=== PATIENT | female | born 1940 | race Caucasian/White ===

== ENCOUNTER 2025-02-28 13:02 | Outpatient (CLI) | payer MEDICARE, SELFPAY ==
--- NOTE | ~2025-02-28 | XR_ITS ---
Fluoroscopically-guided video swallow - 02/28/2025 13:30 CDT History: : 84 years old Female with dysphagia Technique: Fluoroscopic guidance was provided during video swallowing study. Under direct fluoroscopic evaluatio n, the speech pathologist administered barium mixed liquids and solid food of varying consistency. T he mechanisms of bolus formation and swallowing were observed. Findings: Patient tolerated different liquids and foods of varying consistencies. No nasopharyngeal reflux was seen. No laryngeal penetration or subglottic aspiration was seen. Impression: No evidence of aspiration. Fluoroscopically-guided video swallowing study, as above. Please see speech pathology report for furt her details. Reviewed, dictated and finalized at location A. Impression: No evidence of aspiration. Fluoroscopically-guided video swallowing study, as above. Please see speech pat hology report for further details.
--- OUTSIDE RECORDS SUMMARY | 2025-02-28 13:31 | XMS_ITS | Referral Summary ---
Author Organization [facility] Address [address] [place] [id number] Care Team Providers Care Frame And Scrap Crusher Name Role Phone Adolph Lowry MD Primary Care Provider Josemanuel Odell MD Unavailable [phone] Rupesh Gavin DO Unavailable Encounters Date Type Department Care Team Description 02/27/2025 Telephone [facility] [address] [place] [address] [address] [place] [address] Consuelo Isaacs CMA 01/03/2025 Telephone [facility] [address] [place] [address] [address] [place] [address] Alessia Gamble CMA from Last 3 Months Allergies Active Allergy Reactions Criticality Noted Date Comments Codeine Nausea And Vomiting,Vomiting High 019 Indomethacin Unknown 09/26/2019 Medications allopurinoL (ZYLOPRIM) 300 mg tablet Take 1 tablet (300 mg total) by mouth daily 1 Active metFORMIN (GLUCOPHAGE) 500 mg tablet Take 1 tablet (500 mg total) by mouth 2 (two) times a day 1 Active simvastatin (ZOCOR) 20 mg tablet Take 1 tablet (20 mg total) by mouth daily 1 Active meclizine (ANTIVERT) 25 mg tablet meclizine 25 mg tablet TK ONE C PO TID PRN Active furosemide (LASIX) 20 mg tablet Take 1 tablet (20 mg total) by mouth daily 30 tablet 1 2 Active lisinopriL (PRINIVIL,ZESTR IL) 10 mg tablet Take 1 tablet (10 mg total) by mouth daily 30 tablet 1 2 Active metoprolol XL (TOPROL-XL) 25 mg extended release tablet Take 1 tablet (25 mg total) by mouth daily 30 tablet 1 2 Active Farxiga 10 mg tablet Take 1 tablet (10 mg total) by mouth daily 3 Active isosorbide-hydr ALAZINE (BIDIL) 20-37.5 mg per tablet TAKE 1/2 TABLET BY MOUTH THREE TIMES DAILY 3 Active omeprazole (PriLOSEC) 20 mg capsule Take by mouth daily as needed 3 Active Entresto 24-26 mg tablet 3 Active spironolactone- hydroCHLOROthia zide (ALDACTAZIDE) 25-25 mg per tablet Take 1 tablet by mouth daily 3 Active Verquvo 10 mg tablet Take 1 tablet (10 mg total) by mouth daily 3 Active anastrozole (ARIMIDEX) 1 mg tabletIndicatio ns:Hormone Receptor Positive Breast Cancer Take 1 tablet (1 mg total) by mouth daily 90 tablet 5 Active Active Problems Problem Noted Date Diagnosed Date Combined systolic and diastolic heart failure Type 2 diabetes mellitus 03/08/2022 Assessment & Plan (03/14/2022 11:37 AM CDT): On metformin at home, restart at time of discharge. Assessment & Plan (03/13/2022 3:59 PM CDT): On metformin at home. SSI Assessment & Plan (03/12/2022 8:41 AM CDT): On metformin at home. SSI Assessment & Plan (03/11/2022 12:39 PM CDT): On metformin at home. SSI Assessment & Plan (03/10/2022 9:56 AM CDT): On metformin at home. SSI Assessment & Plan (03/08/2022 5:03 PM CDT): On metformin at home. SSI Hypertension 03/08/2022 Assessment & Plan (03/14/2022 11:38 AM CDT): - Discontinued prior to discharge as we are starting BB and ACEi. - Follow up with PCP for ongoing titration of doses. Assessment & Plan (03/13/2022 4:00 PM CDT): - Continue home amlodipine. May discontinue prior to discharge as we'll be starting on BB and ACEi. Assessment & Plan (03/12/2022 8:41 AM CDT): - Continue home amlodipine. Assessment & Plan (03/11/2022 12:39 PM CDT): - Continue home amlodipine. Assessment & Plan (03/10/2022 9:56 AM CDT): - Continue home amlodipine. Assessment & Plan (03/09/2022 2:58 PM CDT): - Continue home amlodipine. Thyroid nodule 03/08/2022 Assessment & Plan (03/14/2022 11:37 AM CDT): Incidental finding. 2.7 cm hypoattenuating right thyroid nodule. - Recommend thyroid US or monitored on any subsequent follow-up imaging as an outpatient. Will defer to PCP. Assessment & Plan (03/13/2022 3:59 PM CDT): Incidental finding. 2.7 cm hypoattenuating right thyroid nodule. - Recommend thyroid US or monitored on any subsequent follow-up imaging as an outpatient. Will defer to PCP. Assessment & Plan (03/12/2022 8:41 AM CDT): Incidental finding. 2.7 cm hypoattenuating right thyroid nodule. - Recommend thyroid US or monitored on any subsequent follow-up imaging as an outpatient. Will defer to PCP. Assessment & Plan (03/11/2022 12:39 PM CDT): Incidental finding. 2.7 cm hypoattenuating right thyroid nodule. - Recommend thyroid US or monitored on any subsequent follow-up imaging as an outpatient. Will defer to PCP. Assessment & Plan (03/10/2022 9:56 AM CDT): Incidental finding. 2.7 cm hypoattenuating right thyroid nodule. - Recommend thyroid US or monitored on any subsequent follow-up imaging as an outpatient. Will defer to PCP. Assessment & Plan (03/08/2022 5:03 PM CDT): Incidental finding. 2.7 cm hypoattenuating right thyroid nodule. This can be further evaluated with thyroid US or monitored on any subsequent follow-up imaging per clinical preference. Malignant neoplasm of upper- inner quadrant of left breast in female, estrogen receptor positive 09/29/2021 Cancer Staging:Clinical stage from 12/09/2021:Stage IA(cT1a, cN0, cM0, G3, ER+, WV+, HER2-) - Signed by Rupesh Gavin DO on 12/13/2021 Assessment & Plan (03/14/2022 11:37 AM CDT): - Breast cancer s/p left sided mastectomy - Follows with Dr. Gavin - [place]/onc consult. Okay to continue home anastrazole. Assessment & Plan (03/13/2022 3:59 PM CDT): - Breast cancer s/p left sided mastectomy - Follows with Dr. Gavin - [place]/onc consult. Okay to continue home anastrazole. Assessment & Plan (03/12/2022 8:41 AM CDT): - Breast cancer s/p left sided mastectomy - Follows with Dr. Gavin - Med/onc consult. Okay to continue home anastrazole. Assessment & Plan (03/11/2022 12:39 PM CDT): - Breast cancer s/p left sided mastectomy - Follows with Dr. Gavin - Med/onc consult. Okay to continue home anastrazole. Assessment & Plan (03/10/2022 9:55 AM CDT): - Breast cancer s/p left sided mastectomy - Follows with Dr. Gavin - Med/onc consult. Okay to continue home anastrazole. Assessment & Plan (03/08/2022 4:46 PM CDT): Breast cancer s/p left sided mastectomy Follows with Dr. Gavin On anastrazole Med/onc consult Resolved Problems Problem Noted Date Diagnosed Date Resolved Date Acute combined systolic and diastolic heart failure 03/12/2022 03/14/2022 Assessment & Plan (03/14/2022 11:36 AM CDT): Pt presented with shortness of breath, new oxygen requirement with chest CT showing pulmonary edema. Now with newly diagnosed heart failure - TTE EF 25-30% with grade II-III diastolic dysfunction and severe globar hypokinesis. - Diuresing with lasix 40 IV daily -> discharge on lasix 20 mg po. - Start lisinopril 10 mg and metoprolol XL 25 mg upon discharge. Recommended dose titration as tolerated in discharge paperwork and encouraged pt to follow up with her PCP in the next 1 to 2 weeks and bring dispo paperwork with her. - Will need to establish care with cardiology outpatient. Pt may like to establish care with flag football coach closer to home. Provided [facility] cardiology clinic phone number in case she would like to establish care here. - Pt provided with information on heart failure. Assessment & Plan (03/13/2022 3:59 PM CDT): Pt presented with shortness of breath, new oxygen requirement with chest CT showing pulmonary edema. Now with newly diagnosed heart failure - TTE EF 25-30% with grade II-III diastolic dysfunction and severe globar hypokinesis. - Continue daily lasix 40 IV. Plan to switch to po tomorrow. - CTM I/Os. Daily weights. - Start ACEi and beta allen prior to discharge. - Will need to establish care with cardiology outpatient. Assessment & Plan (03/12/2022 8:40 AM CDT): Pt presented with shortness of breath, new oxygen requirement with chest CT showing pulmonary edema. Now with newly diagnosed heart failure - TTE EF 25-30% with grade II-III diastolic dysfunction and severe globar hypokinesis. - Continue daily lasix 40 IV. - CTM I/Os. Daily weights. - Start ACEi and beta allen prior to discharge. - Will need to establish care with cardiology outpatient. Acute hypoxemic respiratory failure 03/08/2022 03/14/2022 Assessment & Plan (03/14/2022 11:33 AM CDT): Ongoing for the last week progressively with accompanying cough. Pt tachypneic in the ED with SpO2 down to 80% per report requiring BiPAP. CXR and CT suggestive of pulmonary edema, and pleural effusion. COVID/RVP negative. NT-proBNP slightly elevated. Does have a prior smoking history. Mild leukocytosis to 11.6. Most likely 2/2 newly diagnosed CHF, as below. - Manage CHF, as elsewhere - I do not have a high suspicion for COPD exacerbation but pt does have increased coughing per report and a history of smoking. Started on azithro, steroids and duonebs prn on admission and has now completed treatment for presumed COPD exacerbation. Recommend PFT as outpatient- will defer to PCP. - RESOLVED. On 2L -> now weaned to room air. Walked with RN and SpO2 remained > 92%. Assessment & Plan (03/13/2022 3:58 PM CDT): Ongoing for the last week progressively with accompanying cough. Pt tachypneic in the ED with SpO2 down to 80% per report requiring BiPAP. CXR and CT suggestive of pulmonary edema, and pleural effusion. COVID/RVP negative. NT-proBNP slightly elevated. Does have a prior smoking history. Mild leukocytosis to 11.6. Most likely 2/2 newly diagnosed CHF, as below. - Manage CHF, as elsewhere - I do not have a high suspicion for COPD exacerbation but pt does have increased coughing per report and a history of smoking. Started on azithro, steroids and duonebs prn on admission. Will complete treatment for presumed COPD exacerbation. Recommend PFT as outpatient- will defer to PCP. - On 2L -> now weaned to room air. Assessment & Plan (03/12/2022 2:32 PM CDT): Ongoing for the last week progressively with accompanying cough. Pt tachypneic in the ED with SpO2 down to 80% per report requiring BiPAP. CXR and CT suggestive of pulmonary edema, and pleural effusion. COVID/RVP negative. NT-proBNP slightly elevated. Does have a prior smoking history. Mild leukocytosis to 11.6. Most likely 2/2 newly diagnosed CHF, as below. - Manage CHF, as elsewhere - I do not have a high suspicion for COPD exacerbation but pt does have increased coughing per report and a history of smoking. Started on azithro, steroids and duonebs prn on admission. Will complete treatment for presumed COPD exacerbation. Recommend PFT as outpatient- will defer to PCP. - On 2L -> now weaned to room air. Consider walking O2 prior to discharge. Assessment & Plan (03/11/2022 2:14 PM CDT): Ongoing for the last week progressively with accompanying cough. Pt tachypneic in the ED with SpO2 down to 80% per report requiring BiPAP. CXR and CT suggestive of pulmonary edema, and pleural effusion. COVID/RVP negative. NT-proBNP slightly elevated. Does have a prior smoking history. Mild leukocytosis to 11.6. Suspect component of volume overload so received a dose of lasix IV x 2. - Lasix IV held yesterday given uptrending in Cr. Will give another dose today. - Obtain TTE. - I do not have a high suspicion for COPD exacerbation but pt does have increased coughing per report and a history of smoking. Started on azithro, steroids and duonebs prn on admission. Will complete treatment for presumed COPD exacerbation. Recommend PFT as outpatient- will defer to PCP. - On 2L -> 1L, wean O2 as tolerated Assessment & Plan (03/10/2022 9:53 AM CDT): Ongoing for the last week progressively with accompanying cough. Pt tachypneic in the ED with SpO2 down to 80% per report requiring BiPAP. CXR and CT suggestive of pulmonary edema, and pleural effusion. COVID/RVP negative. NT-proBNP slightly elevated. Does have a prior smoking history. Mild leukocytosis to 11.6. Suspect component of volume overload so received a dose of lasix IV x 2. - Hold lasix IV given uptrending in Cr. - Obtain TTE. - I do not have a high suspicion for COPD exacerbation but pt does have increased coughing per report and a history of smoking. Started on azithro, steroids and duonebs prn on admission. Will complete treatment for presumed COPD exacerbation. Recommend PFT as outpatient- will defer to PCP. - On 2L -> 1L, wean O2 as tolerated Assessment & Plan (03/09/2022 2:57 PM CDT): Ongoing for the last week progressively with accompanying cough. Pt tachypneic in the ED with SpO2 down to 80% per report requiring BiPAP. CXR and CT suggestive of pulmonary edema, and pleural effusion. COVID/RVP negative. NT-proBNP slightly elevated. Does have a prior smoking history. Mild leukocytosis to 11.6. Suspect component of volume overload so received a dose of lasix IV on admission. - Obtain TTE and trial IV lasix - No obvious wheezing but does have a prior smoking history so will continue to treat for presumed copd exac with steroids, azithro, duonebs - On 2L, wean O2 as tolerated Elevated serum creatinine 03/08/2022 Assessment & Plan (03/14/2022 11:37 AM CDT): Cr on admission 1.23 from baseline 1.05- not meeting criteria for FERNANDO. Cr initially improved to 1.12 -> up to 1.30 likely in setting of lasix. Improved and stable 1.10's. FEUrea 26.3% consistent with pre-renal disease. Potential CRS component. - Improved with diuresing. Follow up outpt. Assessment & Plan (03/13/2022 3:59 PM CDT): Cr on admission 1.23 from baseline 1.05- not meeting criteria for FERNANDO. Cr initially improved to 1.12 -> up to 1.30 likely in setting of lasix. Improved and stable 1.10's. FEUrea 26.3% consistent with pre-renal disease. - Continue diuresing, as elsewhere - Trend Cr, strict I/O Assessment & Plan (03/12/2022 8:41 AM CDT): Cr on admission 1.23 from baseline 1.05- not meeting criteria for FERNANDO. Cr initially improved to 1.12 -> up to 1.30 likely in setting of lasix. Now improving 1.15 -> 1.2. FEUrea 26.3% consistent with pre-renal disease. Potential CRS. - Continue diuresing, as elsewhere - Trend Cr, strict I/O Assessment & Plan (03/11/2022 12:39 PM CDT): Cr on admission 1.23 from baseline 1.05- not meeting criteria for FERNANDO. Cr initially improved to 1.12 -> up to 1.30 likely in setting of lasix. Now improved 1.15. FEUrea 26.3% consistent with pre-renal disease. - Will give another dose of lasix - Trend Cr, strict I/O - If not improvement, obtain renal US Assessment & Plan (03/10/2022 9:55 AM CDT): Cr on admission 1.23 from baseline 1.05- not meeting criteria for FERNANDO. Cr initially improved to 1.12 -> now up to 1.30 likely in setting of lasix. - Obtain urine lytes - Hold lasix - Trend Cr, strict I/O - If not improvement, obtain renal US Assessment & Plan (03/09/2022 2:58 PM CDT): Cr on admission 1.23 from baseline 1.05. Improving 1.12. - Will give a repeat dose of IV lasix. - Trend Cr, strict I/O Social History Tobacco Use Types Packs/Day Years Used Date Smoking Tobacco: Never Smokeless Tobacco: Never AUDIT-C Answer Date Recorded Q1: How often do you have a drink containing alc ohol? 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 Gender Identity Not on file Sexual Orientation Not on file Occupation Industry Job Start Date Job End Date Retired Not on file Not on file Not on file Last Filed Vital Signs Vital Sign Reading Time Taken Comments Blood Pressure 98/65 12/30/2023 3:02 PM CARD LACER Pulse 56 12/30/2023 3:02 PM CARD LACER Temperature 36.5 C (97.7 F) 12/30/2023 3:02 PM CARD LACER Respiratory Rate 20 12/30/2023 3:02 PM CARD LACER Oxygen Saturation 96% 12/30/2023 3:02 PM CARD LACER Inhaled Oxygen Concentration - - Weight 98.3 kg (216 lb 11.4 oz) 12/30/2023 3:02 PM CARD LACER Height 170.2 cm (5' 7 ) 12/30/2023 3:02 PM CARD LACER Body Mass Index 33.94 12/30/2023 3:02 PM CARD LACER Plan of Treatment Not on file Procedures Procedure Name Priority Date/Time Associated Diagnosis Comments EGFR Routine 03/14/2022 3:37 AM CDT HEMOGLOBIN A1C STAT 03/08/2022 4:47 AM CDT LIPID PANEL STAT 03/08/2022 4:47 AM CDT from Last 3 Months or Most Recently Relevant to Health Maintenance Results * (ABNORMAL) eGFR (03/14/2022 3:37 AM CDT) eGFR 52(L) 90 - 130 mL/min/1. 73 m2 [facility] Comment: Interpretive Data Reference Interval Normal >/= 90 mL/min/1.73m2 Mildly decreased* 60 - 89 mL/min/1.73m2 Mildly to moderately decreased 45 - 59 mL/min/1.73m2 Moderately to severely decreased 30 - 44 mL/min/1.73m2 Severely decreased 15 - 29 mL/min/1.73m2 Kidney Failure < 15 mL/min/1.73m2 *Relative to young adult level Estimated glomerular filtration rate is determined by the 2020 CKD-EPI equation recommended by the National Kidney Foundation (A Unifying Approach to GFR Estimation: Recommendations of the NKF-ASK Task Force on Reassessing the Inclusion of Race in Diagnosing Kidney Disease, JASN 2020). The CKD-EPI equation should not be used for patients with unstable renal function and has not been validated in children and those over 70. Current interpretive data was last reviewed 2021. Blood 03/14/2022 3:37 AM CDT 03/14/2022 3:48 AM CDT us Sami Clark MD LAB BLOOD ORDERABLES Final Result Performing Organization Address [facility] Co de Phone Number [facility] Department [place] [place] [address] * Hemoglobin A1c (03/08/2022 4:47 AM CDT) Hgb A1C 5.5 4.0 - 5.6 % [facility] Estimated Average Glucose 111 mg/dL [facility] Comment: The ADA recommends reporting an estimated Average Glucose (eAG) with all Hemoglobin A1c results using the equation derived from a study of 507 normal and diabetic adults. Minority populations were underrepresented and children were not included. (Diabetes Care 2020; 43(S1): S66-S76). The eAG is not equivalent to a fasting glucose. Blood 03/08/2022 4:47 AM CDT 03/08/2022 5:17 AM CDT us Rupesh Gavin DO LAB BLOOD ORDERABLES Final R esult Performing Organization Address City/[facility]/ZIP Co de Phone Number [facility] [place] [employer] [address] * Lipid panel (03/08/2022 4:47 AM CDT) Cholesterol 128 30 - 199 mg/dL [facility] Comment: Interpretive Data Ages < or = 19 years Acceptable: <170 mg/dL Borderline high: 170-199 mg/dL High: >or= 200 mg/dL Ages > or = 20 years Desirable: <200 mg/dL Borderline high: 200-239 mg/dL High: >or= 240 mg/dL Literature References: 1. Expert Panel on Integrated Guidelines for Cardiovascular Health and Risk Reduction in Children and Adolescents. Pediatrics 2011;128:S213 2. NCEP Expert Panel. Circulation 2004;110:227 Current Interpretive Data was last revised on 2018. Triglycerides 73 <=149 mg/dL [facility] Comment: Interpretive Data Ages < or = 9 years Acceptable: <75 mg/dL Borderline high: 75-99 mg/dL High: >or= 100 mg/dL Ages 10 to 20 years Acceptable: <90 mg/dL Borderline high: 90-129 mg/dL High: >or= 130 mg/dL Ages > or = 20 years Desirable: <150 mg/dL Borderline high: 150-199 mg/dL High: 200-499 mg/dL Very high: >or= 499 mg/dL Literature References: 1. Expert Panel on Integrated Guidelines for Cardiovascular Health and Risk Reduction in Children and Adolescents. Pediatrics 2011;128:S213 2. NCEP Expert Panel. Circulation 2004;110:227 Current Interpretive Data was last revised on 2018. HDL 46 >=40 mg/dL [facility] Comment: Interpretive Data Ages < or = 19 years Acceptable: >45 mg/dL Borderline low: 40-45 mg/dL Low: <40 mg/dL Ages > or = 20 years Desirable: >or= 60 mg/dL Low: <40 mg/dL Literature References: 1. Expert Panel on Integrated Guidelines for Cardiovascular Health and Risk Reduction in Children and Adolescents. Pediatrics 2011;128:S213 2. NCEP Expert Panel. Circulation 2004;110:227 Current Interpretive Data was last revised on 2018. LDL, calculated 67 <=129 mg/dL [facility] Comment: Interpretive Data Ages < or = 19 years Acceptable: <110 mg/dL Borderline high: 110-129 mg/dL High: >or= 130 mg/dL Ages > or = 20 years Optimal: <100 mg/dL Near optimal: 100-129 mg/dL Borderline high: 130-159 mg/dL High: >160 mg/dL Literature References: 1. Expert Panel on Integrated Guidelines for Cardiovascular Health and Risk Reduction in Children and Adolescents. Pediatrics 2011;128:S213 2. NCEP Expert Panel. Circulation 2004;110:227 Current Interpretive Data was last revised on 2018. Non-HDL Cholesterol 82 mg/dL [facility] Comment: Interpretive Data Ages < or = 19 years Acceptable: <120 mg/dL Borderline high: 120-144 mg/dL High: >145 mg/dL Ages > or = 20 years When triglycerides are >200 mg/dL, Non-HDL cholesterol is a secondary target of therapy with treatment goals that are 30 mg/dL greater than the LDL cholesterol target. Literature References: 1. Expert Panel on Integrated Guidelines for Cardiovascular Health and Risk Reduction in Children and Adolescents. Pediatrics 2011;128:S213 2. NCEP Expert Panel. Circulation 2004;110:227 Current Interpretive Data was last revised on 2018. Chol/HDL ratio 3 [facility] Blood 03/08/2022 4:47 AM CDT 03/08/2022 5:06 AM CDT Narrative [facility] - 03/09/2022 12:17 AM CDT Reflex us Rupesh Gavin DO LAB BLOOD ORDERABLES Final R esult [facility] [place] [address] from Last 3 Months or Most Recently Relevant to Health Maintenance Insurance [facility] MEDICARE ADVANTAGE R HMO REF R HMO REF [place] [id number] Advance Directives For more information, please contact: [phone] * Full Code (Latest Code Status on File) Date Activated Date Inactivated Comments 03/08/2022 11:21 AM 03/14/2022 6:08 PM Care Teams Frame And Scrap Crusher Relationship Specialty Start Date End Date Adolph Lowry MD PCP - General Internal Medicine 09/15/21 Josemanuel Odell MD [address] [address] Surgeon Internal Medicine 09/15/21 Rupesh Gavin DO [address] [place] [id number] Medical Oncologist/Metal Shaping Machine Operator Hematology and Oncology 09/15/21
--- OUTSIDE RECORDS SUMMARY | 2025-02-28 13:31 | XMS_ITS | Encounter Summary ---
Author Organization [facility] Address [address] [place] [address] Phone Care Team Providers Care Receiver Setter Name Role Phone Adolph Lowry MD Primary Care Provider [phone] Josemanuel Odell MD Unavailable [phone] Rupesh Gavin DO Unavailable [phone] Encounter Details Date Type Department Care Team (Late st Contact Info) Description 02/27/2025 Telephone [facility] Oncology [address] [place] [address] [address] [place] [address] Consuelo Isaacs CMA Social History Tobacco Use Types Packs/Day Years [...] on file Legal Sex 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 Rescheduled patient to 03/29/2025 documented in this encounter Plan of Treatment Not on file documented as of this encounter Visit Diagnoses Not on filedocumented in this encounter Care Teams Receiver Setter Relationship Specialty Start Date End Date Adolph Lowry MD PCP - General Internal Medicine 09/15/21 Josemanuel Odell MD [address] [address] Surgeon Internal Medicine 09/15/21 Rupesh Gavin DO [address] [place] [id number] Medical Oncologist/Tire Repair Mechanic Hematology and Oncology 09/15/21 documented as of this encounter
--- OUTSIDE RECORDS SUMMARY | 2025-02-28 13:31 | XMS_ITS ---
Author Organization [facility] Address [address] [place] [address] Care Team Providers Care Forklift Technician Name Role Phone Adolph Lowry MD Primary Care Provider [phone] Josemanuel Odell MD Unavailable [phone] Rupesh Gavin DO Unavailable Active Problems Problem Noted Date Diagnosed Date [...] from 12/09/2021:Stage IA(cT1a, cN0, cM0, G3, ER+, FL+, HER2-) - Signed by Rupesh Gavin DO [...] with Dr. Gavin On anastrazole Med/onc consult Current Treatment and Therapy Plans No current plan information found. Past Treatment and Therapy Plans No past plan information found. Lifetime Dose Tracking * Chemical Lifetime Dose Automatic Entry Manual Entr y DLP 740 mGycm 740 mGycm 0 mGycm Treatment Summaries Malignant neoplasm of upper-inner quadrant of left breast in female, estrogen receptor positive (HCC)* Images from the original note were not included. [address], [address] [place] [address] This Survivorship Care Plan is a cancer treatment summary and follow-up plan and is provided to youto keep with your health care records and to share with your primary care provider or any of your doctors and nurses. This summary is a brief record of major aspects of your cancer treatment not a detailed or comprehensive record of your care. You should review this with your cancer provider. Treatment Summary and Survivorship Care Plan for Breast Cancer General Information Patient name Massiel Kingsley (home) Date of 1940 Health Care Providers (Including Names, Institutions) Provider Name: Contact Information: Primary Care Physician Adolph Lowry MD [phone] Surgeon Josemanuel Odell MD [phone] Medical Oncologist Rupesh Gavin, Treatment Summary Cancer Diagnosis Information Diagnosis Malignant neoplasm of upper-inner quadrant of left breast in female, estrogen receptor positive (CMS/HCC) (HCC) Diagnosis date 09/03/2021 Staging information Cancer Staging Malignant neoplasm of upper-inner quadrant of left breast in female, estrogen receptor positive (CMS/HCC) (HCC) Staging form: Breast, AJCC 8th Edition - Clinical stage from 12/09/2021: Stage IA (cT1a, cN0, cM0, G3, ER+, FL+, HER2-) - Signed by Rupesh Gavin DO on 12/13/2021 Estrogen: Positive Progesterone: Positive HER2: Negative Treatment Completed Surgery Surgery date 09/03/2021 Surgical procedure / location / findings Left Breast Biopsy Surgery date 11/19/2021 Surgical procedure Left Mastectomy Radiation No Systemic Therapy (chemotherapy, hormonal therapy, other) [No treatment plan] Lifetime Dose Tracking Lifetime Dose Tracking No doses have been documented on this patient for the following tracked chemicals: doxorubicin, epirubicin, idarubicin, daunorubicin, mitoxantrone, bleomycin, mitomycin, cyclophosphamide, carmustine,cisplatin, ifosfamide, carboplatin, fluorouracil, etoposide, doxorubicin HCl pegylated liposomal, et oposide phosphate, valrubicin, doxorubicin isotoxic equivalent Research Studies Persistent symptoms or side effects that have continued after finishing treatment: menopausal symptoms, fatigue Family History Cancer Cancer-related family history includes Bone cancer in her sister; Pancreatic cancer in her mother. Genetic Testing No Tell your provider if there is a history of cancer in your family, if another member of your familywas diagnosed with cancer since your last visit. The following risk factors may indicate that breast cancer could run in the family: Sikhism heritage History of ovarian cancer in the patient or any 1st or 2nd degree relative Any 1st degree relative with breast cancer before the age of 50 Two or more 1st or 2nd degree relative diagnosed with breast cancer at any age Patient or relative diagnosed with bilateral breast cancer History of breast cancer in a male relative Treatment Ongoing Additional Treatment Start Date Planned Duration Possible Side Effects Aromatase Inhibitors (anastrozole, exemestane and letrozole) 10/21/2021 5 years Hot flashes, joint/muscle aches, vaginal dryness and bone loss (common); hair thinning (rare) Other rare side effects may occur. Calcium + Vitamin D 19-50 years age and males age 51-70 years: recommend 1,000 mg/day calcium & 600 IU/day vitamin D Females age 51-70 1200 mg/day calcium and 600 IU/day vitamin D Over 70 years age take 1200 mg/day calcium and 800 IU/day of vitamin D 2000 international units daily Lifelong An irregular heartbeat; nausea, constipation; weakness, drowsiness, headache; dry mouth,or a metallic taste in your mouth; or muscle or bone pain. Follow-up Care Plan Your follow-up care plan is design to inform you and primary care providers regarding the recommended and required follow-up, cancer screening and routine health maintenance that is needed to maintain optimal health. Coordinating Provider When/How often Rupesh Gavin DO Every 3-6 months for year 1 to 3 Rupesh Gavin DO Every 6-12 months for year 4 to 5 Josemanuel Odell MD Yearly Adolph Lowry After 5 years, annual follow up Cancer Surveillance or other Recommended Tests Coordinating Provider Test How Often Rupesh Gavin DO - Year 1-5, Adolph Lowry MD - After year 5 Mammogram for remaining breast(s) Yearly CONVENTION PLANNER: Pap/pelvic exam (woman only) As indicated by provider Medical Oncologist: Rupesh Gavin DO, PCP: Adolph Lowry Bone Density Every 2 years if on anaromatase inhibitor or as indicated by your provider CT/PET and tumor markers. Not recommended in the absence of signs or symptoms of cancer recurrence Possible late- and long-term effects that someone with this type of cancer and treatment may experience: Lymphedema The risk for developing lymphedema varies across treatments, time and the patient. This may occur right after surgery or months to years after treatment. It affects 12 to 25% of patients. The risk increases with the removal of lymph nodes, radiation therapy and injury. Avoid blood pressure or blooddraw in affected arm if lymph nodes were removed. If you experience skin tightness, swelling, warmth or redness in your affected side, tell your provider right away. Physical therapy can improve lymph drainage. Talk with your provider about approved exercise. Avoid extreme temperature, injury or infection on the affected side. Talk to your provider about a compression stocking, especially when flying. Fatigue Many patients experience some level of fatigue. Some patients experience severe and ongoing fatigue. An active lifestyle with healthy sleep patterns can improve your energy levels. Talk to your provider about ongoing (more than 3 months) fatigue. Osteoporosis Patients on hormone therapies and who experience early menopause are at a higher risk of developingfractures, osteopenia (lower than normal bone density) and osteoporosis (loss of bone density). Weight bearing exercise, adequate intake calcium and vitamin D are helpful. Bone density scans are usedto evaluate bone health. Menopause or Sexual changes or symptoms of estrogen deprivation (hot flashes, sweats, vaginal discharge or dryness, painful intercourse). The desire to engage in sexual activity may lessen due to low energy, decreased sexual function and/or changes in appearance. Symptoms of menopause may cause vaginal changes and/or dryness. Your riskdepends on your age and the kind of treatment you received. Cancer diagnosis and treatment may cause existing sexual problems to be worse. Evaluation of sexual function and professional counseling may be helpful. The use of [id number] lubricants may lessen painful intercourse. Talk with your provider about sexual changes and symptoms of menopause. Promising non-hormone treatments that may include antidepressants (drugs that treat depression), dietary changes, acupuncture and exercise may h elp lessen symptoms. Psychosocial Distress (Emotional stress, worry or depression). Many patients experience distress, anxiety or depression at some point. This can include worry, difficulty sleeping or sadness and often lessens over time. Discuss this with your provider; a referralto a therapist may be helpful. Physical activity has been shown to relieve stress. Some patients may benefit from the use of medication. It is important to remember that these symptoms can be due to other causes like diabetes or with normal aging. If these or any other new symptoms occur bring these to attention of your health care provider. These symptoms should be brought to the attention of your provider: Anything that represents a brand new symptom; Anything that represents a persistent symptom; Anything you are worried about that might be related to the cancer coming back. Please continue to see your primary care provider for all general health care recommended for a patient your age such as routine immunizations, and routine non-breast cancer screening like colonoscopy or bone density exams. Consult with your health care provider about prevention and screening for bone loss using bone density tests. Cancer survivors may experience issues with the areas listed below. If you have any concerns in these or other areas, please speak with your doctors or nurses to find out how you can get help with them. Anxiety and depression Emotional and mental health Fatigue Fertility Financial advice or assistance Insurance Memory or concentration loss Parenting Physical functioning School/work Sexual functioning Stopping smoking Weight changes Other A number of lifestyle/behaviors can affect your ongoing health, including the risk for the cancer coming back or developing another cancer. Discuss these recommendations with your doctor or nurse: Eat a healthy diet: focus on lean meats and proteins, more fruits, vegetables and whole grains and low in sugars and fats. Limit red meat and avoid processed meat. Maintain a healthy weight; avoid being overweight. Aim for a normal body mass index (BMI) of 18.5-24.9. Help learning to eat healthier, call the pick up man at: [facility] Have an active lifestyle, strive for 30 minutes of moderate exercise 5 times a week and strength orresistance training at least twice a week. Use broad-spectrum (UVA+UVB) sunscreen with SPF 30 or greater, is water resistant, limit time spentin the sun (10 am-4 pm), wear hat, wear UV protective clothing, wear sunglasses. Never use a tanning bed. Skin that was irradiated may be more sensitive over your lifetime. Do not smoke or chew tobacco; participate in a smoking cessation program. Limit alcohol intake, 1 drink per day for a woman and 2 drinks per day for a man. Resources you may be interested in: [facility] http://www.[facility] [place]/ [facility] Information [facility] 1st floor of [facility] [phone]. Computer access, educational material, counseling services (FREE) Cancer Resources: www.cancer.net [place] Disabilities Act: The U.S. Department of Justice provides information about the Americans with Disabilities Act (ADA). Toll free number http://www.ada.gov/ Occupational Therapy at [facility]. Improve memory and thinking following chemotherapy. Improve your performance at home, work and in the community. or Toll free www.ot.[facility]/patients Managing your weight after a cancer diagnosis: http://www.cancer.net/sites/cancer.net/files/weight_after_cancer_diagnosis.pdf National Coalition for Cancer Survivorship: http://www.canceradvocacy.org/ [place] Cancer Society Cancer Survivors Network: http://csn.cancer.org/ [employer]: https://survivorship.cancer.gov/ an online tool for cancer survivors andcaregivers created by the [place] Cancer Society and the National Cancer [place]. It provides: Information on dealing with side effects from cancer and treatment Caregivers with support and resources Practical advice about talking to friends and family about cancer Questions to ask their health care team Help understanding their rights in the workplace Resolved Problems Problem Noted Date Diagnosed Date [...] Pt may like to establish care with evp and chief operating officer closer to home. Provided [facility] cardiology clinic phone number in case [...]
--- OUTSIDE RECORDS SUMMARY | 2025-02-28 13:31 | XMS_ITS | Clinical Summary ---
Author Organization [facility] Address [address] [place] [id number] Phone Care Team Providers Care Vascular Neurologist Name Role Phone Alen Farfan MD Primary Care Provider [phone] Allergies Active Allergy Reactions Criticality Noted Date Comments Codeine 09/26/2019 Indomethacin 09/26/2019 Medications simvastatin (ZOCOR) 20 MG tablet 1 tablet daily 0 7 Active allopurinol (ZYLOPRIM) 300 MG tablet 1 tablet daily 0 7 Active aspirin (ST FLIP) 81 MG EC tablet 1 tablet daily 0 7 Active ferrous sulfate 325 (65 Fe) MG tablet Take 325 mg by mouth 1 (one) time each day with breakfast Active anastrozole (ARIMIDEX) 1 MG chemo tablet Take 1 mg by mouth daily 2 Active metoprolol succinate XL (TOPROL-XL) 25 MG 24 hr tablet metoprolol succinate ER 25 mg tablet,extended release 24 hr 2 Active Cholecalciferol (Vitamin D3) 1.25 MG (40582 UT) capsule Take 50,000 Units by mouth per week Active spironolactone-h ydroCHLOROthiazi de (ALDACTAZIDE) 25-25 MG per tablet Take 1 tablet by mouth 1 (one) time each day Active Vericiguat 10 MG tablet Take 1 tablet by mouth 1 (one) time each day Active sacubitril-valsa rtan (ENTRESTO) 24-26 MG per tablet Take 1 tablet by mouth in the morning and 1 tablet in the evening. Active isosorbide-hydrA LAZINE (BIDIL) 20-37.5 MG per tablet Take 0.5 tablets by mouth in the morning and 0.5 tablets in the evening and 0.5 tablets before bedtime. Active omeprazole (PriLOSEC) [address] capsule Take 40 mg by mouth 1 (one) time each day Active Dapagliflozin Propanediol (Farxiga) 10 MG tablet Take 1 tablet by mouth 1 (one) time each day Active Active Problems Problem Noted Date Diagnosed Date Chronic combined systolic an d diastolic congestive heart failure 07/03/2024 Pulmonary hypertension 07/03/2024 Chronic kidney disease stage 3B 05/04/2022 Essential (primary) hypertension 11/24/2016 Resolved Problems Problem Noted Date Diagnosed Date Resolved Date Chronic kidney disease stage 2 01/21/2021 05/04/2022 Serum creatinine raised 09/26/2019 03/01/2021 Proteinuria 11/24/2016 09/26/2019 Obesity 11/24/2016 04/29/2022 Impaired fasting glucose 11/24/201604/2024 Immunizations Immunization Administration Dates Next Due Influenza TIV (IM) 08/31/2016 Family History Medical History Relation Comments Heart disease Father Hypertension Father Cancer Mother Diabetes Mother Hypertension Mother Cancer Sister Relation Status Comments Father Mother Sister Social History Tobacco Use Types Packs/Day Years Used Date Smoking Tobacco: Unknown Smokeless Tobacco: Never Alcohol Use Standard Drinks/Week Comments Never 0 (1 standard drink = 0.6 oz pur e alcohol) AUDIT-C Answer Date Recorded Frequency of Alcohol Consumption Never 09/26/2019 Average Number of Drinks Not on file 019 Frequency of Binge Drinking Not on file 04/2019 Comments Unknown Sex and Gender Information Value Date Recorded Sex Assigned at Not on file Legal Sex Female 8:48 AM [facility] Gender Identity Not on file Sexual Orientation Not on file Last Filed Vital Signs Vital Sign Reading Time Taken Comments Blood Pressure 133/71 07/03/2024 11:12 AM CDT Pulse 58 07/03/2024 11:12 AM CDT Temperature - - Respiratory Rate - - Oxygen Saturation - - Inhaled Oxygen Concentration - - Weight 96.2 kg (212 lb) 07/03/2024 11:12 AM CDT Height 170.2 cm (5' 7 ) 07/03/2024 11:12 AM CDT Body Mass Index 33.2 07/03/2024 11:12 AM CDT Plan of Treatment Upcoming Encounters Date Type Department Care Team (Late st Contact Info) Description 07/02/2025 11:00 AM CDT Office Visit [facility] [address], [address] [place] [address] Matt Sandoval MD [address] [address] Health Maintenance Due Date Last Done Comments Diabetic Foot Exam 1950 Ophthalmology Exam 1950 Pneumococcal PPSV23/PCV13 65 + Years / High and Highest Risk (2 of 4 - PPSV23) 07/29/2017 06/03/2017 Influenza Vaccine (Season Ended) 2025 08/31/20 16 Insurance [employer] MEDICARE Care Teams Vascular Neurologist Relationship Specialty Start Date End Date Alen Farfan MD PCP - General 10/02/19
--- OUTSIDE RECORDS SUMMARY | 2025-02-28 13:31 | XMS_ITS | CONTINUITY OF CARE DOCUMENT ---
Author Name filipe dent Address Unknown Organization [facility] Address [address] [place] [address] Phone [phone] Care Team Providers Care Field Inspector Name Role Phone Daniele SKINNER, Charlie Unavailable Adolph Lowry MD Unavailable Adolph Lowry MD Unavailable [phone] PROBLEMS Condition Status Date Provider Notes IRON DEFICIENCY active Charlie Sanabria MD CAD;;neg carotid active Charlie Sanabria MD Pulmonary hypertension active Charlie Sanabria MD Valvular heart disease active Charlie Sanabria MD Screening active Charlie Sanabria MD HTN-02/26 ECHO EF 55 active - Charlie Sanabria MD Hyperlipidemia;neg crp and lpa active Alma Rosa Sanabria MD HTN essential;neg angio active Charlie messina MD CAD-02/26 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 - Charlie Sanabria MD TANJA (YARBROUGH)-PARKINSON-WHIT E (WPW) SYNDROME active Charlie Sanabria MD seen in 2008 ek g ATRIAL FIBRILLATION, PAROXYSMAL;DURING STRESS TEST;neg tsh active Charlie Sanabria MD Diastolic CHF active Charlie avalos et 20, Thyroid nodule;nl tsh active Charlie Sanabria MD Renal disease, chronic, mild;NEG ANGIO and us active Charlie Sanabria MD neg uacr Gallstones and elevated lft active Charlie edmodns MD neg hep panlle PREDIABETES active Charlie Sanabria MD Exposure to SARS-associated coronavirus;had vaccine and neg swab active Charlie Sanabria MD Tobacco use, quit active Charlie Sanabria MD Bradycardia;nml tsh active Charlie Sanabria MD off beta now Mediastinal lymphadenopathy active Charlie edmonds MD PVC's active Charlie Sanabria MD ENCOUNTERS Date Type Provider Location Encounter Diag nosis - In-person encounter Office Visit Charlie Sanabria MD [facility] - In-person encounter Office Visit Charlie Sanabria MD [facility] Diastolic CHFRenal disease, chronic, mild;NEG ANGIO and usBradycardia;nml tshPVC's - In-person encounter Office Visit Charlie Sanabria MD [facility] - In-person encounter Office Visit Charlie Sanabria MD [facility] - In-person encounter Office Visit Charlie Sanabria MD [facility] Diastolic CHFBradycardia;nml tshMediastinal lymphadenopathy - In-person encounter Office Visit Leo Friedman MD [facility] Bradycardia;nml tsh - In-person encounter Office Visit Charlie Sanabria MD [facility] Thyroid nodule;nl tshGallstones and elevated lft - In-person encounter Office Visit Charlie Sanabria MD [facility] Diastolic CHFGallstones and elevated lftPREDIABETESExposure to SARS-associated coronavirus;had vaccine and neg swabTobacco use, quit - In-person encounter Office Visit Charlie Sanabria MD [facility] Diastolic CHFThyroid nodule;nl tsh - In-person encounter Office Visit Charlie Sanabria MD [facility] HTN-02/26 ECHO EF 55Hyperlipidemia;neg crp and lpaHTN essential;neg angioCAD-02/26 CAROTID NEGWOLFF (YARBROUGH)-PARKINSON-WHITE (WPW) SYNDROMEATRIAL FIBRILLATION, PAROXYSMAL;DURING STRESS TEST;neg tsh VITAL SIGNS Date Observation Value Provider Body Mass Index (Ratio) 33.20 kg/m2 Frank Sanabria MD blood pressure, diastolic 66 mm[Hg] Norma hernandez [facility] blood pressure, systolic 121 mm[Hg] Noemí conner [facility] pulse rate 51 /min Krystal [facility] oxygen saturation, oximetry 97 % Krystal [facility] blood pressure, cuff size regular Norma hernandez [facility] weight E&M 212 [lb_av] [facility] height E&M 67 [in_i] [facility] Body Mass Index (Ratio) 33.51 kg/m2 Frank Sanabria MD blood pressure, cuff size regular Antonio Irizarry RN blood pressure, diastolic 60 mm[Hg] Antonio Irizarry RN blood pressure, systolic 110 mm[Hg] Alexander Irizarry RN oxygen saturation, oximetry 100 % Alexander Irizarry RN respiratory rate E&M 22 /min Alexander dumont RN pulse rate 48 /min Alexander Irizarry RN weight E&M 214 [lb_av] Alexander Irizarry RN Body Mass Index (Ratio) 33.67 kg/m2 Frank Sanabria MD blood pressure, diastolic 69 mm[Hg] Li nkLogic blood pressure, systolic 116 mm[Hg] Diana kLogic blood pressure, cuff size regular Ja rret blood pressure, diastolic 69 mm[Hg] Ja rret blood pressure, systolic 116 mm[Hg] Jar ret pulse rate 61 /min [place] y oxygen saturation, oximetry 100 % respiratory rate E&M 16 /min [place] weight E&M 215 [lb_av] [place] [facility] height E&M 67 [in_i] [place] [facility] Body Mass Index (Ratio) 33.67 kg/m2 Frank Sanabria MD blood pressure, diastolic 54 mm[Hg] St acy Jesús blood pressure, systolic 157 mm[Hg] Sta roxie Espinosa pulse rate 72 /min Debora Espinosa oxygen saturation, oximetry 98 % Debora Espinosa weight E&M 215 [lb_av] Deboraroxie Espinosa respiratory rate E&M 16 /min Debora young height E&M 67 [in_i] Deboraroxie Espinosa Body Mass Index (Ratio) 33.51 kg/m2 Femi Friedman MD pulse rate 54 /min Debora Espinosa blood pressure, diastolic 61 mm[Hg] St acy Jesús blood pressure, systolic 129 mm[Hg] Sta roxie Espinosa blood pressure, cuff size regular St acmireya Espinosa oxygen saturation, oximetry 89 % Deboraroxie Espinosa respiratory rate E&M 16 /min Debora D hannah weight E&M 214 [lb_av] Debora Jesús height E&M 67 [in_i] Deboraroxie Espinosa Body Mass Index (Ratio) 33.04 kg/m2 Frank Sanabria MD blood pressure, cuff size large Ke rri Homaruenecurtis blood pressure, diastolic 56 mm[Hg] Ke rri Homaruenenfkatya blood pressure, systolic 122 mm[Hg] Ker ri Rodrigo oxygen saturation, oximetry 99 % Leyla Grafnelliepablokatya respiratory rate E&M 16 /min Leyla Saavedra adelamadhavicurtis pulse rate 58 /min Leyla Yung [facility] weight E&M 211 [lb_av] Leyla Yung [facility] height E&M 67 [in_i] Leyla Yung [facility] Body Mass Index (Ratio) 33.07 kg/m2 Frank Sanabria MD blood pressure, cuff size large Ta gagan Van blood pressure, diastolic 69 mm[Hg] Ta gagan Van blood pressure, systolic 120 mm[Hg] [facility] oxygen saturation, oximetry 95 % [facility] respiratory rate E&M 18 /min Erin Van pulse rate 66 /min ErinCentinela [facility] weight E&M 211.2 [lb_av] Erin Van height E&M 67 [in_i] [facility] Body Mass Index (Ratio) 33.36 kg/m2 Frank Sanabria MD blood pressure, diastolic 82 mm[Hg] Li nkLogic blood pressure, systolic 146 mm[Hg] Diana kLogic blood pressure, diastolic 82 mm[Hg] Ca therine Joshua blood pressure, systolic 146 mm[Hg] Cat herine Conroy oxygen saturation, oximetry 99 % Alexus Joshua pulse rate 74 /min Alexus Conroy respiratory rate E&M 16 /min Catheri ne Joshua weight E&M 213 [lb_av] Alexus Joshua height E&M 67 [in_i] Alexus Joshua blood pressure, cuff size regular Ca therine Conroy blood pressure, diastolic 86 mm[Hg] Antonio Irizarry RN blood pressure, systolic 145 mm[Hg] Alexander Irizarry RN pulse rate 51 /min Alexander Irizarry RN oxygen saturation, oximetry 98 % Alexander Irizarry RN respiratory rate E&M 20 /min Alexander robertsonmauri RN weight E&M 274 [lb_av] Alexander Irizarry RN ALLERGIES Allergy Name Onset Date Reaction Criticality Status TOPROL XL florian Low Criticality active HISTORY OF MEDICATION USE Medication Status Instructions Dates Provider Indications Com ments isosorbide-hydralazin e 20-37.5 mg tablet active TAKE 1/2 TABLET BY MOUTH THREE TIMES DAILY [place] famotidine 40 mg tablet active TAKE 1 TABLET BY MOUTH EVERY DAY IN THE EVENING Charlie Sanabria MD metoprolol succinate 25 mg tablet extended release 24 hr active TAKE 1 TABLET BY MOUTH EVERY DAY 12/07 Charlie Sanabria MD hydralazine 25 mg tablet completed Take 1 tablet by mouth twice a day 11/28 - 01/16 Charlie Sanabria MD isosorbide dinitrate 10 mg tablet completed Take 1 tablet by mouth twice a day 11/28 - 01/16 Charlie Sanabria MD D3-2000 50 mcg (2,000 unit) capsule active 1 capsule by mouth once a day 01/01 Charlie Sanabria MD isosorbide dinitrate 10 mg tablet completed - 11/28 Kaycee Rachel omeprazole 40 mg capsule,delayed release(DR/EC) active Charlie Sanabria MD hydralazine 25 mg tablet completed - 11/28 Kaycee Rachel metoprolol succinate 25 mg tablet extended release 24 hr completed - 01/01 Charlie Sanabria MD Verquvo 10 mg tablet active TAKE 1 TABL ET BY MOUTH EVERY DAY 11/24 Charlie Sanabria MD Entresto 24-26 mg tablet active TAKE 1 TABLET BY MOUTH TWICE DAILY 08/03 Charlie Sanabria MD Farxiga 10 mg tablet active TAKE 1 TABL ET BY MOUTH EVERY DAY 04/22 Charlie Sanabria MD isosorbide-hydralazin e 20-37.5 mg tablet completed TAKE 1/2 TABLET BY MOUTH THREE TIMES DAILY 03/23 - 01/01 Charlie Sanabria MD BiDil 20-37.5 mg tablet completed Take 1/2 tablet by mouth three times a day 07/22 - 03/23 Reina Barba BiDil 20-37.5 mg tablet completed - 07/22 Charlie Sanabria MD -1999 unspecified unspecified completed - 01/01 Charlie Sanabria MD Verquvo 10 mg tablet completed Take 1 tabl et by mouth once a day 07/22 - 11/24 Valentine Mark Verquvo 2.5 mg tablet completed - 07/22 Charlie Sanabria MD Verquvo 5 mg tablet completed - 07/22 Charlie Sanabria MD Entresto 24-26 mg tablet completed Take 1 tablet by mouth twice a day 05/12 - 08/03 Leyla Wallace Farxiga 10 mg tablet completed Take 1 tabl et by mouth once a day 05/12 - 04/22 Leyla Wallace spironolacton-hydroch lorothiaz 25-25 mg tablet active TAKE 1 TABLET BY MOUTH EVERY DAY 05/12 Charlie Sanabria MD FeroSul 325 mg (65 mg iron) tablet active TAKE 1 TABLET BY MOUTH EVERY MORNING WITH BREAKFAST Charlie Sanabria MD escitalopram oxalate 5 mg tablet completed TAKE 1 TABLET BY MOUTH EVERY DAY - 07/22 Charlie Sanabria MD aspirin 81 mg tablet,delayed release (DR/EC) active Take 1 tablet by mouth once a day Charlie Sanabria MD allopurinol 300 mg tablet active 1 tab daily Charlie Sanabria MD albuterol sulfate 90 mcg/actuation HFA aerosol inhaler completed 2 puffs every6 4-6 hrs - 02/20 Roseline MCGOWAN anastrozole 1 mg tablet active daily Ivory Guardado NP furosemide 20 mg tablet completed daily - 06/22 Charlie Sanabria MD lisinopril 10 mg tablet completed daily - 05/12 Ivory Guardado NP metformin 500 mg tablet completed twice a day - 06/22 Charlie Sanabria MD metoprolol succinate 25 mg tablet extended release 24 hr completed 1 tablet daily - Leo Frideman MD simvastatin 20 mg tablet active at bedtime Charlie Sanabria MD NAPROXEN TABS completed 500 mg as needed - 05/12 Ivory Guardado NP pantoprazole 40 mg tablet,delayed release (DR/EC) completed once a day - 05/12 Ivory Guardado NP ALBUTEROL AERS completed as needed - 05/12 Ivory Guardado NP hydrochlorothiazide 25 mg tablet completed 1 tablet once a day - 05/12 Ivory Guardado NP LANOXIN 250 MCG ORAL TABLET completed ONE TAB. DAILY - 04/24 Alexander Irizarry RN Zestril 40 mg tablet completed 1 tablet on ce a day - 05/12 Ivory Guardado NP ZOCOR 20 MG ORAL TABLET completed ONE TAB. AT BEDTIME - 05/06 Antonella Gray SOCIAL HISTORY Date Observation Value Provider personal history of marijuana use no Charlie Sanabria MD drug use no Charlie Jurado alcohol use no Charlie Jurado smoking history, tot al pack/day 1 Charlie Sanabria MD cigarette use yes Charlie Sanabria MD smoking status Former smoker Charlie messina MD personal history of marijuana use no Charlie Sanabria MD drug use no Charlie Jurado alcohol use no Charlie Jurado smoking history, tot al pack/day 1 Charlie Sanabria MD cigarette use yes Charlie Sanabria MD smoking status Former smoker Charlie messina MD personal history of marijuana use no Roseline Ventimiglia [employer] OPERATOR drug use no Roseline Ventimig edgar [employer] OPERATOR alcohol use no Roseline Ventimig edgar [facility] smoking history, tot al pack/day 1 Roseline Ventishiglia COOLER OPERATOR cigarette use yes Roseline German glia [employer]ER OPERATOR smoking status Former smoker Roseline mayo [facility] caffeine use, averag e drinks per day yes Debora Jesús smoking history, tot al pack/day 1 Debora Jesús cigarette use yes Debora Jesús smoking status Former smoker Debora Jesús social history E&M Marital Statu s: L leonidas with family/friends E thnicity: Smoking History: P atient is a former smoker. Leo Friedman MD social history reviewed E&M revi ewed - no changes required Leo Friedman MD caffeine use, averag e drinks per day yes Deboraroxie Espinosa smoking history, tot al pack/day 1 Debora Jesús cigarette use yes Debora Jesús smoking status Former smoker Debora Jesús social history E&M Marital Statu s: L leonidas with family/friends E thnicity: Smoking History: P atharman is a former smoker. Charlie Sanabria MD social history reviewed E&M revi ewed - no changes required Charlie Sanabria MD caffeine use, averag e drinks per day yes Leyla Wallace smoking history, tot al pack/day 1 Leyla Mahoneyer cigarette use yes Leyla aldana smoking status Former smoker Leyla Mami acevedo social history E&M Marital Statu s: L leonidas with family/friends E thnicity: Smoking History: P bobby is a former smoker. Charlie Sanabria MD social history reviewed E&M revi ewed - no changes required Charlie Sanabria MD quit smoking, stage quit Charlie edmonds MD smoking history, tot al pack/day 1 Erin Zeng cigarette use yes Erin Zeng smoking status Former smoker Erin Zeng smoking history, tot al pack/day 0.5 Ivory Guardado [employer] cigarette use yes Ivory Kevin er [employer] caffeine use, averag e drinks per day yes Alexus Conroy smoking status Former smoker Ivory Adin dolaner [employer] social history E&M Marital Statu s: L leonidas with family/friends E thnicity: Alexander Irizarry RN caffeine use, averag e drinks per day yes Alexander Irizarry RN alcohol use, average drinks per day no Alexander Irizarry RN smoking status Non-Smoker Alexander Irizarry RN social history reviewed E&M reviewed Alexander Irizarry RN FUNCTIONAL STATUS Date Observation Value Provider HRA, CV Assess/Plan, Angina (inactive) Management Plan continue current therapy Charlie Sanabria MD HRA, CV Assess/Plan, Angina (inactive) Management Plan continue current therapy Charlie Sanabria MD HRA, CV Assess/Plan, Angina (inactive) Management Plan continue current therapy Roseline Murcia COOLER OPERATOR HRA, CV Assess/Plan, Angina (inactive) Management Plan continue current therapy Charlie Sanabria MD HRA, CV Assess/Plan, Angina (inactive) Management Plan continue current therapy Charlie Sanabria MD MENTAL STATUS Date Observation Value Provider assessment of judgme nt and insight E&M Alert and oriented to time, place and person. Mood and affect are normal. Alexander Irizarry RN FAMILY HISTORY Family Member Condition First Degree Blood Relative No Known Fam angely History INSURANCE PROVIDERS Payer name Policy type / Coverage type [place] [employer] party ID [id number] (PPO C-SNP) [employer] insurance company [id number] ADVANCE DIRECTIVES Name Date DISCUSSED - NO DECISION MADE TREATMENT PLAN Date Name Performer [id number],C,m ild mr and mild ai and mild tr pap 25 Charlie Sanabria MD [id number],C,up to 55% Aston Sanabria MD [id number],S,Continue Fe s upplement Jessica Preet ROSAS [id number],S,Mild to moder ate MR on echo. Jessica Preet ROSAS [id number],B,R PM shows BPs to be overall well controlled. H er updated medication list for this problem includes: Aldactazide 25-25 Mg Tablet (Spironolacton-hydrochlorothiaz) ..... Take 1 tablet by mouth every day Aspirin 81 Mg Tablet,delayed Release (dr/ec) (Aspirin) ..... Take 1 tablet by mouth once a day Jessica Preet ROSAS [id number],S,N o evidence of CHF at present. She is instructed on how to use daily weights to monitor for any increased fluid. H er updated medication list for this problem includes: Entresto 24-26 Mg Tablet (Sacubitril-valsartan) ..... Take 1 tablet by mouth twice a day Aldactazide 25-25 Mg Tablet (Spironolacton-hydrochlorothiaz) ..... Take 1 tablet by mouth every day Aspirin 81 Mg Tablet,delayed Release (dr/ec) (Aspirin) ..... Take 1 tablet by mouth once a day Jessiac Preet ROSAS [id number],B,E F has improved to 45% by echo 08/2022. She will continue current GDMT and have repeat echo 08/2023 and F/U in one year. Jessica Preet ROSAS [id number],B,53 by ella turner g by mitch Sanabria MD [id number],B, 4 5%, pro nmlized Charlie Sanabria MD [id number],C,45%, pro nmli zed Charlie Sanabria MD [id number],C,45% Charlie holt MD [id number],S,L ast EF 20% by cath 06/11. On GDMT, but should have ECHO to confirm EF before considering ICD since patient is over 80. Leo Friedman MD [id number],S, Leo Brito willow SKINNER [id number],B, Leo Brito willow SKINNER [id number],S, Leo Brito willow SKINNER [id number],B, Leo Brito willow SKINNER [id number],S, Leo Brito willow SKINNER [id number],C,D ocumented but asymptomatic. Lowest HR was 47. Will stop metoprolol. No indication for PPM. Leo Friedman MD [id number],S, Charlie messina MD [id number],B, H er updated medication list for this problem includes: Aldactazide 25-25 Mg Tablet (Spironolacton-hydrochlorothiaz) ..... Take 1 tablet by mouth every day Aspirin 81 Mg Tablet,delayed Release (dr/ec) (Aspirin) ..... Take 1 tablet by mouth once a day Metoprolol Succinate 25 Mg Tablet Extended Release 24 Hr (Metoprolol succinate) ..... 1 tablet daily BP today: 122/56 P rior BP: 120/69 (06/22/2022) Charlie Sanabria MD [id number],B, 5 .5 Charlie Sanabria MD [id number],B, d oen to 61 Charlie Sanabria MD [id number],S,told to have colon Charlie Sanabria MD [id number],S,f iorsts low in 02/2022 2 0 by ella Sanabria MD [id number],S, 2 0% lm 2021 Charlie Birchsiddharth SKINNER [id number],B, Charlie Birch siddharth SKINNER [id number],B, Charlie Birch siddharth SKINNER [id number],B, H er updated medication list for this problem includes: Simvastatin 20 Mg Tablet (Simvastatin) ..... At bedtime Charlie Sanabria MD [id number],S, n eg vd for dvt, neg uacr Charliega Birchsiddharth SKINNER [id number],S, n eg bx per pt Charlie Daniele SKINNER [id number],S, n eg bx per pt Charliega Birchsiddharth SKINNER [id number],C,doen to 61 [place] Sanabria MD [id number],S,588 Charlie holt MD [id number],B, H er updated medication list for this problem includes: Aldactazide 25-25 Mg Tablet (Spironolacton-hydrochlorothiaz) ..... Take 1 tablet by mouth every day Aspirin 81 Mg Tablet,delayed Release (dr/ec) (Aspirin) ..... Take 1 tablet by mouth once a day Furosemide 20 Mg Tablet (Furosemide) ..... Daily Metoprolol Succinate 25 Mg Tablet Extended Release 24 Hr (Metoprolol succinate) ..... 1 tablet daily BP today: 120/69 P rior BP: 146/82 (05/12/2022) BP today: 146/82 P rior BP: 145/86 (04/24/2009) The following medications were removed from the medication list: Lisinopril 10 Mg Tablet (Lisinopril) ..... Daily Hydrochlorothiazide 25 Mg Tablet (Hydrochlorothiazide) ..... 1 tablet once a day Zestril 40 Mg Tablet (Lisinopril) ..... 1 tablet once a day Her updated medication list for this problem includes: Aldactazide 25-25 Mg Tablet (Spironolacton-hydrochlorothiaz) ..... Take 1 tablet by mouth every day Aspirin 81 Mg Tablet,delayed Release (dr/ec) (Aspirin) ..... Take 1 tablet by mouth once a day Furosemide 20 Mg Tablet (Furosemide) ..... Daily Metoprolol Succinate 25 Mg Tablet Extended Release 24 Hr (Metoprolol succinate) ..... 1 tablet daily Charlie Sanabria MD [id number],C,neg bx per pt Charlie Sanabria MD [id number],S,5.5 Charlie Se rota [id number],S, Charlie Serot a [id number],S, Charlie Serot siddharth SKINNER [id number],S, 2 0 by ella Sanabria MD [id number],S, n eg vd for dvt, neg uacr Charlie Sanabria MD [id number],S, 5 3 by [facility] Charlie Sanabria MD [id number],S, m ild to mod mr by echo nothing by ella Sanabria MD [id number],S, 2 0% lm 2021 Charlie Sanabria MD [id number],C,20% lm 2021 H zaira Sanabria MD [id number],C,20 by [facility] Jase Sanabria MD [id number],C,neg vd for dv t, neg uacr Charlie Sanabria MD [id number],C,53 by [facility] Aston Sanabria MD [id number],C,m ild to mod mr by echo nothing by ella Sanabria MD [id number],C,60 Charlie whitehead MD [id number],C,m ild ot mod mr , mild ar tr an pr Charlie Sanabria MD [id number],C,egfr 50 Alma Rosa gomes Daniele SKINNER [id number],C,n eg uacr and caroitrd a bnl nuc neg cath 08 n eg vd for dvt Charlie Sanabria MD [id number],C, B P today: 146/82 P rior BP: 145/86 (04/24/2009) The following medications were removed from the medication list: Lisinopril 10 Mg Tablet (Lisinopril) ..... Daily Hydrochlorothiazide 25 Mg Tablet (Hydrochlorothiazide) ..... 1 tablet once a day Zestril 40 Mg Tablet (Lisinopril) ..... 1 tablet once a day Her updated medication list for this problem includes: Aldactazide 25-25 Mg Tablet (Spironolacton-hydrochlorothiaz) ..... Take 1 tablet by mouth every day Aspirin 81 Mg Tablet,delayed Release (dr/ec) (Aspirin) ..... Take 1 tablet by mouth once a day Furosemide 20 Mg Tablet (Furosemide) ..... Daily Metoprolol Succinate 25 Mg Tablet Extended Release 24 Hr (Metoprolol succinate) ..... 1 tablet daily Ivory Guardado NP [id number],C,plans for bio psy Ivory Guardado NP [id number],C,e cho 02/2022: S ELLEN: No prior study for comparison. Moderate LVE with normal wall thickness, severe global hypokinesis, LVEF 25-30%, markedly abnormal LV strain (but unable to quantify), and grade II-III diastolic dysfunction with increased est. LV filling pressure. Marked RVE with moderate global RV dysfunction. Moderate LAE and marked ROSALIA. Normal aorta. Dilated IVC with diminished inspiratory collapse c/w i ncreased RA pressure. Mild to moderate MR. Mild AR, TR and GA. Est. PASP 60 mm Hg, assuming an RA pressure of 12 mm Hg. No pericardial effusion. Ivory Guardado NP [id number],C, B P today: 146/82 P rior BP: 145/86 (04/24/2009) T he following medications were removed from the medication list: Lisinopril 10 Mg Tablet (Lisinopril) ..... Daily Hydrochlorothiazide 25 Mg Tablet (Hydrochlorothiazide) ..... 1 tablet once a day Zestril 40 Mg Tablet (Lisinopril) ..... 1 tablet once a day Her updated medication list for this problem includes: Aldactazide 25-25 Mg Tablet (Spironolacton-hydrochlorothiaz) ..... Take 1 tablet by mouth every day Aspirin 81 Mg Tablet,delayed Release (dr/ec) (Aspirin) ..... Take 1 tablet by mouth once a day Furosemide 20 Mg Tablet (Furosemide) ..... Daily Metoprolol Succinate 25 Mg Tablet Extended Release 24 Hr (Metoprolol succinate) ..... 1 tablet daily Ivory Debby [employer] [id number],C,n ewly diagnosed 02/2022. EF 25-30% markedly abnormal LV strain (but unable to quantify), and grade II-III diastolic dysfunction with increased est. LV filling pressure. Marked RVE with moderate global RV dysfunction. Moderate LAE and marked ROSALIA. Normal aorta. Dilated IVC with diminished inspiratory collapse c/w increased RA pressure. Mild to moderate MR. Mild AR, TR and GA. Est. PASP 60 mm Hg, assuming an RA pressure of 12 mm Hg. No pericardial effusion. The following medications were removed from the medication list: Lisinopril 10 Mg Tablet (Lisinopril) ..... Daily Hydrochlorothiazide 25 Mg Tablet (Hydrochlorothiazide) ..... 1 tablet once a day Zestril 40 Mg Tablet (Lisinopril) ..... 1 tablet once a day Her updated medication list for this problem includes: Entresto 24-26 Mg Tablet (Sacubitril-valsartan) ..... Take 1 tablet by mouth twice a day Aldactazide 25-25 Mg Tablet (Spironolacton-hydrochlorothiaz) ..... Take 1 tablet by mouth every day Aspirin 81 Mg Tablet,delayed Release (dr/ec) (Aspirin) ..... Take 1 tablet by mouth once a day Furosemide 20 Mg Tablet (Furosemide) ..... Daily Metoprolol Succinate 25 Mg Tablet Extended Release 24 Hr (Metoprolol succinate) ..... 1 tablet daily Ivory Guardado [employer] Cardiology: m ild MR, trace to mild AR Charlie Sanabria MD Cardiology: n eg vd for dvt, Charlie Sanabria MD Cardiology Charlie Sanabria MD Cardiology:5.6 5 .5 Charlie Sanabria MD Cardiology:less than 1% 4 on ekg Charlie Sanabria MD Cardiology: 3 3 Charlie Sanabria MD Cardiology: n eg bx per pt Charlie Sanabria MD Cardiology: 5 3 by cath neg by ehco Charlie Sanabria MD Cardiology: 2 0% lm 2021 Charlie Serotsiddharth SKINNER Cardiology Charlie Serotsiddharth SKINNER Cardiology: e f 55, nml pro Charlie Sanabria MD Cardiology: 3 3 Charlie Sanabria MD :33 Charlie Sanabria MD Cardiology: n eg vd for dvt, Charlie Sanabria MD Cardiology Charlie Serotsiddharth SKINNER Cardiology Charlie Sanabria MD Cardiology: m ild MR, trace to mild AR Charlie Sanabria MD Cardiology:4 on ekg Charlie messina MD Cardiology: D ocumented but asymptomatic. Lowest HR was 47. 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 Take 1 tablet by mouth once a day Roselineestela Murcia [facility] :BP at goal c ontinue present medication regimen H er updated medication list for this problem includes: Spironolacton-hydrochlorothiaz 25-25 Mg Tablet (Spironolacton-hydrochlorothiaz) ..... Take 1 tablet by mouth every day Aspirin 81 Mg Tablet,delayed Release (dr/ec) (Aspirin) ..... Take 1 tablet by mouth once a day Roselineestela Murcia [facility] :EF of 55% on recent echo n o SOB or chest pain has some fatigue c ontinue present med regimen as EF improved from 45% to 55% H er updated medication list for this problem includes: Spironolacton-hydrochlorothiaz 25-25 Mg Tablet (Spironolacton-hydrochlorothiaz) ..... Take 1 tablet by mouth every day Aspirin 81 Mg Tablet,delayed Release (dr/ec) (Aspirin) ..... Take 1 tablet by mouth once a day Roselineestela Murcia [facility] :encouraged her to r esume replacement therapy as may be contributing to her fatigue [facility] :remains on statin t herapy H er updated medication list for this problem includes: Simvastatin 20 Mg Tablet (Simvastatin) ..... At bedtime [place] [facility] :mild MR, trace to mild AR on re cent echo [facility] Roseline Godwinmigl ia [facility] :mild mr and mild ai and mild tr pap 25 Charlie Sanabria MD :up to 55% Charlie Sanabria MD Cardiology:Continue Fe supplemen t Jessica Oviedo NP Cardiology:Mild to moderate MR o n echo. Jessica Oviedo NP Cardiology:RPM shows BPs to be overall well controlled. H er updated medication list for this problem includes: Aldactazide 25-25 Mg Tablet (Spironolacton-hydrochlorothiaz) ..... Take 1 tablet by mouth every day Aspirin 81 Mg Tablet,delayed Release (dr/ec) (Aspirin) ..... Take 1 tablet by mouth once a day Jessica Preet ROSAS Cardiology:No eviden ce of CHF at present. She is instructed on how to use daily weights to monitor for any increased fluid. H er updated medication list for this problem includes: Entresto 24-26 Mg Tablet (Sacubitril-valsartan) ..... Take 1 tablet by mouth twice a day Aldactazide 25-25 Mg Tablet (Spironolacton-hydrochlorothiaz) ..... Take 1 tablet by mouth every day Aspirin 81 Mg Tablet,delayed Release (dr/ec) (Aspirin) ..... Take 1 tablet by mouth once a day Jessica Oviedo NP Cardiology:EF has im proved to 45% by echo 08/2022. She will continue current GDMT and have repeat echo 08/2023 and F/U in one year. Jessica Oviedo NP Cardiology;clindesk reviw and rpm ok:53 by cath neg by ehco Charlie Sanabria MD Cardiology;clindesk reviw and rpm ok: 4 5%, pro nmlized Charlie Sanabria MD :45%, pro nmlized Charlie Sanabria MD :45% Charlie Sanabria MD Cardiology:Last EF 2 0% by cath 06/11. On GDMT, but should have ECHO to confirm EF before considering ICD since patient is over 80. Leo Friedman MD Cardiology Leo Friedman MD Cardiology Leo Friedman MD Cardiology Leo Friedman MD Cardiology Leo Friedman MD Cardiology Leo Friedman MD Cardiology:Documente d but asymptomatic. Lowest HR was 47. Will stop metoprolol. No indication for PPM. Leo Friedman MD Cardiology Charlie Sanabria MD Cardiology: H er updated medication list for this problem includes: Aldactazide 25-25 Mg Tablet (Spironolacton-hydrochlorothiaz) ..... Take 1 tablet by mouth every day Aspirin 81 Mg Tablet,delayed Release (dr/ec) (Aspirin) ..... Take 1 tablet by mouth once a day Metoprolol Succinate 25 Mg Tablet Extended Release 24 Hr (Metoprolol succinate) ..... 1 tablet daily BP today: 122/56 P rior BP: 120/69 (06/22/2022) Charlie Sanabria MD Cardiology: 5 .5 Charlie Sanabria MD Cardiology: d oen to 61 Charlie Sanabria MD Cardiology:told to have colon [place] Sanabria MD Cardiology:amie l ow in 02/2022 2 0 by cath Charlie Sanabria MD Cardiology: 2 0% lm 2021 Charlie Sanabria MD Cardiology Charlie Sanabria MD Cardiology Charlie Sanabria MD Cardiology: H er updated medication list for this problem includes: Simvastatin 20 Mg Tablet (Simvastatin) ..... At bedtime Charlie Sanabria MD Cardiology: n eg vd for dvt, neg uacr Charlie Sanabria MD Cardiology: n eg bx per pt Charlie Sanabria MD Cardiology: n eg bx per pt Charlie Sanabria MD :doen to 61 Charlie Sanabria MD Cardiology:588 Charlie Sanabria MD Cardiology: H er updated medication list for this problem includes: Aldactazide 25-25 Mg Tablet (Spironolacton-hydrochlorothiaz) ..... Take 1 tablet by mouth every day Aspirin 81 Mg Tablet,delayed Release (dr/ec) (Aspirin) ..... Take 1 tablet by mouth once a day Furosemide 20 Mg Tablet (Furosemide) ..... Daily Metoprolol Succinate 25 Mg Tablet Extended Release 24 Hr (Metoprolol succinate) ..... 1 tablet daily BP today: 120/69 P rior BP: 146/82 (05/12/2022) BP today: 146/82 P rior BP: 145/86 (04/24/2009) The following medications were removed from the medication list: Lisinopril 10 Mg Tablet (Lisinopril) ..... Daily Hydrochlorothiazide 25 Mg Tablet (Hydrochlorothiazide) ..... 1 tablet once a day Zestril 40 Mg Tablet (Lisinopril) ..... 1 tablet once a day Her updated medication list for this problem includes: Aldactazide 25-25 Mg Tablet (Spironolacton-hydrochlorothiaz) ..... Take 1 tablet by mouth every day Aspirin 81 Mg Tablet,delayed Release (dr/ec) (Aspirin) ..... Take 1 tablet by mouth once a day Furosemide 20 Mg Tablet (Furosemide) ..... Daily Metoprolol Succinate 25 Mg Tablet Extended Release 24 Hr (Metoprolol succinate) ..... 1 tablet daily Charlie Sanabria MD Cardiology:neg bx per pt Charlie Sanabria MD Cardiology:5.5 Charlie Sanabria MD Cardiology Charlie Sanabria MD Cardiology Charlie Sanabria MD Cardiology: 2 0 by ella Sanabria MD Cardiology: n eg vd for dvt, neg uacr Charlie Sanabria MD Cardiology: 5 3 by [facility] Charlie Sanabria MD Cardiology: m ild to mod mr by echo nothing by ella Sanabria MD Cardiology: 2 0% lm 2021 Charlie Sanabria MD :20% lm 2021 Charlie Sanabria MD :20 by ella Sanabria MD :neg vd for dvt, neg uacr Charlie Sanabria MD :52 by [facility] Charlie Sanabria MD :mild to mod mr by echo nothing by ella Sanabria MD :60 Charlie Sanabria MD :mild ot mod mr , mild ar tr an pr Charlie Sanabria MD :egfr 50 Charlie Sanabria MD :neg uacr and caroit rd a bnl nuc neg cath 08 n eg vd for dvt Charlie Sanabria MD Cardiology;[facility], NML CATHTERS: B P today: 146/82 P rior BP: 145/86 (04/24/2009) The following medications were removed from the medication list: Lisinopril 10 Mg Tablet (Lisinopril) ..... Daily Hydrochlorothiazide 25 Mg Tablet (Hydrochlorothiazide) ..... 1 tablet once a day Zestril 40 Mg Tablet (Lisinopril) ..... 1 tablet once a day Her updated medication list for this problem includes: Aldactazide 25-25 Mg Tablet (Spironolacton-hydrochlorothiaz) ..... Take 1 tablet by mouth every day Aspirin 81 Mg Tablet,delayed Release (dr/ec) (Aspirin) ..... Take 1 tablet by mouth once a day Furosemide 20 Mg Tablet (Furosemide) ..... Daily Metoprolol Succinate 25 Mg Tablet Extended Release 24 Hr (Metoprolol succinate) ..... 1 tablet daily Ivory Guardado NP Cardiology;[facility], NML CATHTERS:plans for biopsy Ivory Guardado NP Cardiology;[facility], NML CATHTERS:echo 02/2022: S ELLEN: No prior study for comparison. Moderate LVE with normal wall thickness, severe global hypokinesis, LVEF 25-30%, markedly abnormal LV strain (but unable to quantify), and grade II-III diastolic dysfunction with increased est. LV filling pressure. Marked RVE with moderate global RV dysfunction. Moderate LAE and marked ROSALIA. Normal aorta. Dilated IVC with diminished inspiratory collapse c/w i ncreased RA pressure. Mild to moderate MR. Mild AR, TR and GA. Est. PASP 60 mm Hg, assuming an RA pressure of 12 mm Hg. No pericardial effusion. Ivory Guardado NP Cardiology;[facility], NML CATHTERS: B P today: 146/82 P rior BP: 145/86 (04/24/2009) T he following medications were removed from the medication list: Lisinopril 10 Mg Tablet (Lisinopril) ..... Daily Hydrochlorothiazide 25 Mg Tablet (Hydrochlorothiazide) ..... 1 tablet once a day Zestril 40 Mg Tablet (Lisinopril) ..... 1 tablet once a day Her updated medication list for this problem includes: Aldactazide 25-25 Mg Tablet (Spironolacton-hydrochlorothiaz) ..... Take 1 tablet by mouth every day Aspirin 81 Mg Tablet,delayed Release (dr/ec) (Aspirin) ..... Take 1 tablet by mouth once a day Furosemide 20 Mg Tablet (Furosemide) ..... Daily Metoprolol Succinate 25 Mg Tablet Extended Release 24 Hr (Metoprolol succinate) ..... 1 tablet daily Ivory Guardado NP Cardiology;[facility], NML CATHTERS:newly diagnosed 02/2022. EF 25-30% markedly abnormal LV strain (but unable to quantify), and grade II-III diastolic dysfunction with increased est. LV filling pressure. Marked RVE with moderate global RV dysfunction. Moderate LAE and marked ROSALIA. Normal aorta. Dilated IVC with diminished inspiratory collapse c/w increased RA pressure. Mild to moderate MR. Mild AR, TR and GA. Est. PASP 60 mm Hg, assuming an RA pressure of 12 mm Hg. No pericardial effusion. The following medications were removed from the medication list: Lisinopril 10 Mg Tablet (Lisinopril) ..... Daily Hydrochlorothiazide 25 Mg Tablet (Hydrochlorothiazide) ..... 1 tablet once a day Zestril 40 Mg Tablet (Lisinopril) ..... 1 tablet once a day Her updated medication list for this problem includes: Entresto 24-26 Mg Tablet (Sacubitril-valsartan) ..... Take 1 tablet by mouth twice a day Aldactazide 25-25 Mg Tablet (Spironolacton-hydrochlorothiaz) ..... Take 1 tablet by mouth every day Aspirin 81 Mg Tablet,delayed Release (dr/ec) (Aspirin) ..... Take 1 tablet by mouth once a day Furosemide 20 Mg Tablet (Furosemide) ..... Daily Metoprolol Succinate 25 Mg Tablet Extended Release 24 Hr (Metoprolol succinate) ..... 1 tablet daily Ivory Guardado NP new wpw Charlie Sanabria MD new wpw: H er updated medication list for this problem includes: Zocor 20 Mg Tabs (Simvastatin) ..... One tab. at bedtime BP today: 145/86 Prior BP: / () Charlie Sanabria MD new wpw: T he following medications were removed from the medication list: Lanoxin 0.25 Mg Tabs (Digoxin) ..... One tab. daily Her updated medication list for this problem includes: Zestril 40 Mg Tabs (Lisinopril) ..... One tab. daily Hydrochlorothiazide 25 Mg Tabs (Hydrochlorothiazide) ..... One tab. daily BP today: 145/86 Prior BP: / () N uclear Stress Findings: EF - 42%. B oth inferior and lateral leads are suggestive of ischemia. E pisode of atrial fibrillation with rapid rate of 188bpm which converted to normal sinus rhythm by itself. F indings suggestive of a reversible component is seen in the anteroapical segment fo the myocardium. [facility] (02/08/2008) C ardiac Cath: normal: LV function normal. (02/22/2008) C arotid Doppler/Duplex: Normal carotid duplex. [facility] (02/20/2008) E chocardiogram: EF- 55%. N ormal wall motion of the left ventricle. N o valvular abnormalities. [facility] (03/11/2008) Orders: C omplete Echo ([id number]) Charlie Sanabria MD new wpw Charlie Sanabria MD new wpw: H er updated medication list for this problem includes: Zestril 40 Mg Tabs (Lisinopril) ..... One tab. daily Hydrochlorothiazide 25 Mg Tabs (Hydrochlorothiazide) ..... One tab. daily BP today: 145/86 Charlie Sanabria MD new wpw:Will send to [facility] T he following medications were removed from the medication list: Lanoxin 0.25 Mg Tabs (Digoxin) ..... One tab. daily Her updated medication list for this problem includes: Zestril 40 Mg Tabs (Lisinopril) ..... One tab. daily BP today: 145/86 Prior BP: / () N uclear Stress Findings: EF - 42%. B oth inferior and lateral leads are suggestive of ischemia. E pisode of atrial fibrillation with rapid rate of 188bpm which converted to normal sinus rhythm by itself. F indings suggestive of a reversible component is seen in the anteroapical segment fo the myocardium. [facility] (02/08/2008) C ardiac Cath: normal: LV function normal. (02/22/2008) C arotid Doppler/Duplex: Normal carotid duplex. [facility] (02/20/2008) BP today: 145/86 Prior BP: / () N uclear Stress Findings: EF - 42%. B oth inferior and lateral leads are suggestive of ischemia. E pisode of atrial fibrillation with rapid rate of 188bpm which converted to normal sinus rhythm by itself. F indings suggestive of a reversible component is seen in the anteroapical segment fo the myocardium. [facility] (02/08/2008) Echocardiogram: EF- 55%. N ormal wall motion of the left ventricle. N o valvular abnormalities. [facility] (03/11/2008) C ardiac Cath: normal: LV function normal. (02/22/2008) Charlie Sanabria MD new wpw: H er updated medication list for this problem includes: Zestril 40 Mg Tabs (Lisinopril) ..... One tab. daily BP today: 145/86 Prior BP: / () N uclear Stress Findings: EF - 42%. B oth inferior and lateral leads are suggestive of ischemia. E pisode of atrial fibrillation with rapid rate of 188bpm which converted to normal sinus rhythm by itself. F indings suggestive of a reversible component is seen in the anteroapical segment fo the myocardium. [facility] (02/08/2008) C ardiac Cath: normal: LV function normal. (02/22/2008) C arotid Doppler/Duplex: Normal carotid duplex. [facility] (02/20/2008) E chocardiogram: EF- 55%. N ormal wall motion of the left ventricle. N o valvular abnormalities. [facility] (03/11/2008) Orders: Quentin gamboaadder Ultrasound ([id number]) Charlie Sanabria MD Historical Information Charlie holt MD Historical Informati on:normal cath today H er updated medication list for this problem includes: Zestril 40 Mg Tabs (Lisinopril) ..... One tab. daily Charlie Sanabria MD Date Name Complete Echo CT Chest without con trast Monitor - Telemetry (Mobile Cardiac) PROBNP, N TERMINAL BASIC METABOLIC PANE L W/EGFR Complete Echo CT Chest without con trast HEMOGLOBIN A1c Microalb/Creatinine Urine, Random Lipoprotein (a) LIPID PANEL Monitor - Telemetry (Mobile Cardiac) Thyroid Ultrasound CT Chest without con trast Holter Monitor 24 Hr Complete Echo PROBNP, N TERMINAL BASIC METABOLIC PANE L W/EGFR Complete Echo Holter Monitor 24 Hr Complete Echo Complete Echo Holter Monitor 24 Hr RPM (remote patient monitoring) CRP, high sensitivit y HEPATITIS PANEL BASIC METABOLIC PANE L W/EGFR TSH, free T4, total T3 PROBNP, N TERMINAL IRON AND TOTAL IRON BINDING CAPACITY FERRITIN PROTHROMBIN TIME WIT H INR LIPID PANEL CBC (INCLUDES DIFF/P LT) BASIC METABOLIC PANE L W/EGFR Cardiac Cath - L/R- [facility] Holter Monitor 24 Hr Gallbaladder Ultraso und Complete Echo HISTORY OF PROCEDURES Procedure Date Procedure Name Provider Procedure Notes S tatus Complex e/m visit add on Charlie Sanabria MD completed Complex e/m visit add on Charlie Sanabria MD completed EKG Charlie Sanabria MD complete d EKG Charlie Sanabria MD complete d EKG Charlie Sanabria MD complete d EKG Charlie Sanabria MD complete d
--- OUTSIDE RECORDS SUMMARY | 2025-02-28 13:31 | XMS_ITS | Clinical Summary ---
Author Organization [facility] Address [address] [place] [id number] Care Team Providers Care Credit Review Manager Name Role Phone Adolph Lowry MD Primary Care Provider Josemanuel Odell MD Unavailable [phone] Rupesh Gavin DO Unavailable Allergies Active Allergy Reactions Criticality Noted Date [...] from 12/09/2021:Stage IA(cT1a, cN0, cM0, G3, ER+, SC+, HER2-) - Signed by Rupesh Gavin DO on 12/13/2021 Assessment & Plan (03/14/2022 11:37 AM CDT): - Breast cancer s/p left sided mastectomy - Follows with Dr. Gavin - [place]/onc consult. Lew to continue home anastrazole. Assessment & Plan (03/13/2022 3:59 PM CDT): - Breast cancer s/p left sided mastectomy - Follows with Dr. Gavin - [place]/onc consult. Lew to continue home anastrazole. Assessment & Plan (03/12/2022 8:41 AM CDT): - Breast cancer s/p left sided mastectomy - Follows with Dr. Gavin - [place]/onc consult. Lew to continue home anastrazole. Assessment & Plan (03/11/2022 12:39 PM CDT): - Breast cancer s/p left sided mastectomy - Follows with Dr. Gavin - [place]/onc consult. Lew to continue home anastrazole. Assessment & Plan (03/10/2022 9:55 AM CDT): - Breast cancer s/p left sided mastectomy - Follows with Dr. Gavin - [place]/onc consult. Lew to continue home anastrazole. Assessment & Plan [...] Pt may like to establish care with digital asset manager closer to home. Provided [facility] cardiology clinic phone number in case she [...] IV lasix. - Trend Cr, strict I/O Encounters Date Type Department Care Team Description 02/27/2025 Telephone [facility] Oncology [address] [place] [address] [address] [place] [address] Consuelo Isaacs CMA 01/03/2025 Telephone [facility] Oncology [address] [facility] [address] [place] [address] Alessia Gamble CMA from Last 3 Months Surgical History Surgery Date Site/Laterality Comments BREAST LUMPECTOMY Medical History Medical History Date Comments Cancer (HCC) Hypercholesteremia Hypertension Family History Medical History Relation Name Comments Heart attack Father Pancreatic cancer Mother Bone cancer Sister Relation Name Status Comments Father Mother Sister Social History [...] on file Legal Sex Female 2:42 AM [employer] Gender Identity Not on file Sexual Orientation Not on file Occupation Industry Job Start Date Job End Date Retired Not on file Not on file Not on file Obstetrics History Last Filed Vital Signs Vital Sign Reading Time Taken Comments Blood Pressure 98/65 12/30/2023 3:02 PM [employer] Pulse 56 12/30/2023 3:02 PM [employer] Temperature 36.5 C (97.7 F) 12/30/2023 3:02 PM [employer] Respiratory Rate 20 12/30/2023 3:02 PM [employer] Oxygen Saturation 96% 12/30/2023 3:02 PM [employer] Inhaled Oxygen Concentration - - Weight 98.3 kg (216 lb 11.4 oz) 12/30/2023 3:02 PM [employer] Height 170.2 cm (5' 7 ) 12/30/2023 3:02 PM [employer] Body Mass Index 33.94 12/30/2023 3:02 PM [employer] Plan of Treatment Health Maintenance Due Date Last Done Comments Albumin Creatinine Ratio, Urine 1940 Depression Screening 1940 Osteoporosis Screening-Bone Density Scan 1940 Dilated Eye Exam 1939 Foot Exam 1939 DTaP/Tdap/Td Vaccine (1 - Tdap) 1950 Hepatitis B Screening 1957 Zoster Vaccine (1 of 2) 1958 Well Visit 65+ 2004 Covid-19 Vaccine (3 - Modern a risk series) 04/14/2021 03/17/2021, 02/13/2021 Hemoglobin A1C 09/07/2022 03/08/2022, 03/08/2022 Lipid Panel 03/08/2023 03/08/2022 Fall Risk Assessment 03/14/2023 03/14/2022 eGFR 03/14/2023 03/14/2022, 02/20, 03/12/2022, Additional history exists Influenza Vaccine (Season Ended) 2025 Pneumococcal vaccine 65+ Completed 06/03/2017, 06/21 Procedures Procedure Name Priority Date/Time Associated Diagnosis Comments EGFR Routine 03/14/2022 3:37 AM CDT HEMOGLOBIN A1C STAT 03/08/2022 4:47 AM CDT LIPID PANEL STAT 03/08/2022 4:47 AM CDT from Last 3 Months or Most Recently Relevant to Health Maintenance Results * (ABNORMAL) eGFR (03/14/2022 3:37 AM CDT) eGFR 52(L) 90 - 130 mL/min/1. 73 m2 [facility] Comment: Interpretive Data Reference Interval Normal >/= [...] Clark MD LAB BLOOD ORDERABLES Final Result [facility] [place] [address] * Hemoglobin A1c (03/08/2022 4:47 AM CDT) Hgb A1C 5.5 4.0 - 5.6 % [facility] Estimated Average Glucose 111 mg/dL [facility] Comment: The ADA recommends reporting an estimated Average Glucose (eAG) with all Hemoglobin A1c results using the equation derived from a study of 507 normal and diabetic adults. Minority populations were underrepresented and children were not included. (Diabetes Care 2020; 43(S1): S66-S76). The eAG is not equivalent to a fasting glucose. Blood 03/08/2022 4:47 AM CDT 03/08/2022 5:17 AM CDT Rupesh Gavin DO LAB BLOOD ORDERABLES Final R esult [facility] Department [place] [address] * Lipid panel (03/08/2022 4:47 AM CDT) Cholesterol 128 30 - 199 mg/dL [facility] Comment: Interpretive Data Ages < or = [...] on 2018. Triglycerides 73 <=149 mg/dL [facility] Comment: Interpretive Data Ages [...] revised on 2018. HDL 46 >=40 mg/dL [facility] Comment: Interpretive Data Ages < or = [...] on 2018. LDL, calculated 67 <=129 mg/dL [facility] Comment: Interpretive Data Ages < or = [...] revised on 2018. Non-HDL Cholesterol 82 mg/dL [facility] Comment: Interpretive Data Ages < or = [...] last revised on 2018. Chol/HDL ratio 3 [facility] Blood 03/08/2022 4:47 AM CDT 03/08/2022 5:06 AM CDT Narrative [facility] - 03/09/2022 12:17 AM CDT Reflex Rupesh Gavin DO LAB BLOOD ORDERABLES Final R esult [facility] Department [place] [address] from Last 3 Months or Most Recently Relevant to Health Maintenance [place] [address] [facility] MEDICARE ADVANTAGE [facility] Address: [address] [address] [place] [address] [facility] MDCR HMO REF [facility] Address: [address] [address] [place] [address] [facility] MDCR HMO REF [facility] Address: [facility] [address] [place] [address] Advance Directives For more information, please contact: [phone] * Full Code (Latest Code Status on File) Date Activated Date Inactivated Comments 03/08/2022 11:21 AM 03/14/2022 6:08 PM Care Teams Credit Review Manager Relationship Specialty Start Date End Date Adolph Lowry MD PCP - General Internal Medicine 09/15/21 Josemanuel Odell MD [address] [place] [address] [address] [place] [address] Surgeon Internal Medicine 09/15/21 Rupesh Gavin DO [address] [place] [id number] Medical Oncologist/Sales Management Intern Hematology and Oncology 09/15/21
--- OUTSIDE RECORDS SUMMARY | 2025-02-28 13:31 | XMS_ITS | Continuity of Care Document ---
Author Organization [facility] Address [address] [place] [address] Phone Care Team Providers Care Nipping Machine Operator Name Role Phone Su Madden Unavailable Unavailable Advance Directives Directive Yes / No Effective Date File Name No Information Encounters Encounter Description Practice Location Reason(s) For Visit Diagnoses Date Provider Providers Copied on Encounter [facility], [id number] [place] [address] [address], [place], [place], [id number], [place] tel:[phone] [facility] No Information Jan-2 9-200 1 Maryanne Blue. [address] , [address], [place], [address], [place]. tel:[phone] Family History Family Member Type Diagnosis Age At Onset No Information Payers Payer name Insurance type Covered constitution party ID Authoriza tion(s) [employer] SOI CI [id number] Social History Type Description Quantity Date Captured Comments Sex Female Smoking Status No Information Chief Complaint And Reason For Visit No Information Reason For Referral Reason For Referral No Information History Of Present Illness Encounter Date Complaint History Of Prese nt Illness No Information Functional Status Date Functional Assessmen t No Information Instructions Date Instruction Additional Infor mation No Information Assessments Type Assessment Date No Information Patient Care Teams Name Effective Dates (start - stop) Status Members No Information
--- NOTE | 2025-02-28 15:42 | REHSTMBS ---
Assessment and note entered by Daiana Bravo, LABORATORY ANIMAL FACILITY SUPERVISOR Modified Barium Swallow Evaluation Feeding Type Recommended Oral ST Clinical Summary The above pleasant and cooperative pt was seen for an outpatient modified barium swallow. She was alert & oriented, and able to follow commands. She is currently on a regular diet and reports difficulty in that it feels like there's a lump in her throat when she swallows. She stated she occasionally coughs during meals but denied choking associated with liquids or solids. Oral mucosa is normal; pt was edentulous; she stated she has dentures but can eat without them. Prior to exam she exhibited clear vocal quality. The patient was seated for a lateral view and presented with 5cc of thin liquid barium via spoon , pudding consistency barium via a spoon, cracker coated with barium pudding via spoon, and uncontrolled thin liquid barium. This was presented via a cup & straw. Oral preparatory and oral phase symptoms: none. Pharyngeal phase symptoms: within functional limits; trace pyriform sinus residue which was cleared with dry swallows . No laryngeal penetration, aspiration or residual was noted. Esophageal stage symptoms: none. Overall, no aspiration occurred. Impressions: Normal swallow Ability No further ST is warranted at this time.
== END 2025-02-28 13:03 | disposition home or self-care (01) ==
PROVIDERS: Visit Provider Nurse Practitioner Adult Health
DX: K22.2 Esophageal obstruction (principal)
CPT/HCPCS: 92611

== ENCOUNTER 2025-05-31 11:37 | Outpatient (CLI) | payer MEDICARE, SELFPAY ==
--- NOTE | ~2025-05-31 | XR_ITS ---
Clinical Indication: Congestive heart failure PA and lateral views of the chest: Comparison: None Findings: Probable linear scarring left midlung. Lungs are otherwise clear. Cardiomediastinal silhou ette is enlarged. Bones and soft tissues are unremarkable. Impression: Probably left midlung scarring, otherwise clear lungs. Mild cardiomegaly. Reviewed, dictated and finalized at location . Impression: Probably left midlung scarring, otherwise clear lungs. Mild cardiomegaly.
--- OUTSIDE RECORDS SUMMARY | 2025-05-31 11:42 | XMS_ITS | Continuity of Care Document ---
Author Organization [facility] Address [address] [place] [address] Phone Care Team Providers Care Mixer Blender Name Role Phone Su Madden Unavailable Unavailable Advance Directives Directive Yes / No Effective Date File Name No Information Encounters Encounter Description Practice Location Reason(s) For Visit Diagnoses Date Provider Providers Copied on Encounter [facility], [address] [place] [address] [address], [place], [place], [id number], [place] tel:[phone] [facility] No Information Jan-2 9-200 1 Maryanne Blue. [address] [facility] , [address], [place], [address], [place]. tel:[phone] Family History Family Member Type Diagnosis Age At Onset No Information Payers Payer name Insurance type Covered constitution party ID Authoriza tion(s) [employer] SOI CI [id number] Social History Type Description Quantity Date Captured [...]
--- OUTSIDE RECORDS SUMMARY | 2025-05-31 11:42 | XMS_ITS | Encounter Summary ---
Author Organization [facility] Address [address] [place] [address] Phone Care Team Providers Care Cotton Sampler Name Role Phone Adolph Lowry MD Primary Care Provider Josemanuel dOell MD Unavailable [phone] Rupesh Gavin DO Unavailable Reason for Visit * Reason Comments Follow-up Encounter Details Date Type Department Care Team (Late st Contact Info) Description 05/31/2025 10:15 AM CDT Office Visit 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 Gender Identity Not on file Sexual Orientation Not on file Occupation Industry Job Start Date Job End Date Retired Not on file Not on file Not on file documented as of this encounter Last Filed Vital Signs Vital Sign Reading Time Taken Comments Blood Pressure 106/60 05/31/2025 10:50 AM CDT Pulse 57 05/31/2025 10:50 AM CDT Temperature 36.8 C (98.2 F) 05/31/2025 10:50 AM CDT Respiratory Rate 18 05/31/2025 10:50 AM CDT Oxygen Saturation 96% 05/31/2025 10:50 AM CDT Inhaled Oxygen Concentration - - Weight 94.4 kg (208 lb 1.8 oz) 05/31/2025 10:50 AM CDT Height 164 cm (5' 4.57) 05/31/2025 10:50 AM CDT Body Mass Index 35.1 05/31/2025 10:50 AM CDT documented in this encounter Ordered Prescriptions Prescription Sig Dispense Quantity Refills Last Filled Start Date End Date anastrozole (ARIMIDEX) 1 mg tabletIndications: Hormone Receptor Positive Breast Cancer Take 1 tablet (1 mg total) by mouth daily 90 tablet 2 05/31/2025 anastrozole (ARIMIDEX) 1 mg tabletIndications: Hormone Receptor Positive Breast Cancer Take 1 tablet (1 mg total) by mouth daily 90 tablet 2 05/31/2025 05/31/2025 documented in this encounter Plan of Treatment Not on file documented as of this encounter Visit Diagnoses Diagnosis Malignant neoplasm of upper-inner quadrant of left breast in female, estrogen receptor positive (HCC)- Primary documented in this encounter Discontinued Medications Medication Sig Discontinue Reason Start Date End Da te anastrozole (ARIMIDEX) 1 mg tabletIndications:Hormon e Receptor Positive Breast Cancer Take 1 tablet (1 mg total) by mouth daily Reorder 04/03/2025 05/31/2025 anastrozole (ARIMIDEX) 1 mg tabletIndications:Hormon e Receptor Positive Breast Cancer Take 1 tablet (1 mg total) by mouth daily Reorder 05/31/2025 05/31/2025 documented as of this encounter Historical Medications * This list may reflect changes made after this encounter. cholecalciferol (VITAMIN D-3) 2000 unit capsule Take 1 capsule (2,000 Units total) by mouth daily 05/11/2025 lancets (Microlet Lancet) mis blood-glucose meter (OneTouch Ultra2 Meter) kit FPD lancing device mis 2 (two) times a day blood glucose diagnostic (Contour Next Test Strips) strip Take 1 strip twice a day by miscell. route for 90 days. 05/30/2025 magnesium oxide (MAG-OX) 400 mg (241.3 mg elemental magnesium) tablet Take 1 tablet (400 mg total) by mouth 2 (two) times a day aspirin 81 mg enteric coated tablet Take 1 tablet (81 mg total) by mouth daily added in this encounter Orders Appointment Requests Count Last Ordered Date Fi rst Ordered Date ONCBCN CLINIC APPOINTMENT REQUEST 2 025 documented in this encounter Care Teams Cotton Sampler Relationship Specialty Start Date End Date Adolph Lowry MD PCP - General Internal Medicine 09/15/21 Josemanuel Odell MD [address] [address] Surgeon Internal Medicine 09/15/21 Rupesh Gavin DO [address] [place] [address] Medical Oncologist/Brass And Wind Instrument Repairer Hematology and Oncology 09/15/21 documented as of this encounter
--- OUTSIDE RECORDS SUMMARY | 2025-05-31 11:42 | XMS_ITS | Clinical Summary ---
Author Organization [facility] Address [address] [place] [address] Care Team Providers Care Bonding Equipment Operator Name Role Phone Adolph Lowry MD Primary Care Provider Josemanuel Odell MD Unavailable Rupesh Gavin DO Unavailable Allergies Active Allergy [...] daily 30 tablet 1 2 Active lisinopriL (PRINIVIL,ZEST RIL) 10 mg tablet Take 1 tablet (10 mg total) by mouth daily 30 tablet 1 2 Active metoprolol XL (TOPROL-XL) 25 mg extended release tablet Take 1 tablet (25 mg total) by mouth daily 30 tablet 1 2 Active Additional Information Patient not taking.Reported on 05/31/2025 Farxiga 10 mg tablet Take 1 tablet (10 mg total) by mouth daily 3 Active isosorbide-hyd rALAZINE (BIDIL) 20-37.5 mg per tablet TAKE 1/2 TABLET BY MOUTH THREE TIMES DAILY 3 Active omeprazole (PriLOSEC) 20 mg capsule Take by mouth daily as needed 3 Active Entresto 24-26 mg tablet 3 Active spironolactone -hydroCHLOROth iazide (ALDACTAZIDE) 25-25 mg per tablet Take 1 tablet by mouth daily 3 Active Verquvo 10 mg tablet Take 1 tablet (10 mg total) by mouth daily 3 Active aspirin 81 mg enteric coated tablet Take 1 tablet (81 mg total) by mouth daily Active magnesium oxide (MAG-OX) 400 mg (241.3 mg elemental magnesium) tablet Take 1 tablet (400 mg total) by mouth 2 (two) times a day Active blood glucose diagnostic (Contour Next Test Strips) strip Take 1 strip twice a day by miscell. route for 90 days. 5 Active lancing device [facility] 2 (two) times a day Active blood-glucose meter (OneTouch Ultra2 Meter) kit FPD Active lancets (Microlet Lancet) [facility] Active cholecalcifero l (VITAMIN D-3) 2000 unit capsule Take 1 capsule (2,000 Units total) by mouth daily 5 Active anastrozole (ARIMIDEX) 1 mg tabletIndicati ons:Hormone Receptor Positive Breast Cancer Take 1 tablet (1 mg total) by mouth daily 90 tablet 2 5 Active anastrozole (ARIMIDEX) 1 mg tabletIndicati ons:Hormone Receptor Positive Breast Cancer Take 1 tablet (1 mg total) by mouth daily 60 tablet 5 05/31/20 25 Discontin ued(Reord er) anastrozole (ARIMIDEX) 1 mg tabletIndicati ons:Hormone Receptor Positive Breast Cancer Take 1 tablet (1 mg total) by mouth daily 90 tablet 2 5 05/31/20 25 Discontin ued(Reord er) Active Problems Problem Noted Date Diagnosed Date [...] from 12/09/2021:Stage IA(cT1a, cN0, cM0, G3, ER+, CO+, HER2-) - Signed by Rupesh Gavin DO [...] Pt may like to establish care with kiln loader closer to home. 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 Gender Identity Not on file Sexual Orientation [...] Mass Index 35.1 05/31/2025 10:50 AM CDT Plan of Treatment Health Maintenance Due Date [...] 02/20, 03/12/2022, Additional history exists Influenza Vaccine (#1) 2025 Pneumococcal vaccine 65+ Completed 06/03/2017, 06/21 Procedures Procedure Name Priority Date/Time Associated Diagnosis Comments EGFR Routine 03/14/2022 3:37 AM CDT HEMOGLOBIN A1C STAT 03/08/2022 4:47 AM CDT LIPID PANEL STAT 03/08/2022 4:47 AM CDT from Last 3 Months or Most Recently Relevant to Health Maintenance Results * (ABNORMAL) eGFR (03/14/2022 3:37 AM CDT) eGFR 52(L) 90 - 130 mL/min/1. 73 m2 [facility] Comment: Interpretive Data Reference Interval Normal >/= [...] 3:37 AM CDT 03/14/2022 3:48 AM CDT Sami Clark MD LAB BLOOD ORDERABLES Final Result [facility] One [facility] Department [place] [address] * Hemoglobin A1c (03/08/2022 4:47 AM CDT) Pathologist [facility] Hgb A1C 5.5 4.0 - 5.6 % [facility] Estimated Average Glucose 111 mg/dL [facility] Comment: The ADA recommends reporting an [...] DO LAB BLOOD ORDERABLES Final R esult [facility] One [facility] Department [place] [address] * Lipid panel (03/08/2022 4:47 AM CDT) Cholesterol 128 30 - 199 mg/dL [facility] Comment: Interpretive Data Ages [...] on 2018. Triglycerides 73 <=149 mg/dL [facility] Comment: Interpretive Data Ages < or [...] revised on 2018. HDL 46 >=40 mg/dL [facility] Comment: Interpretive Data Ages < or [...] on 2018. LDL, calculated 67 <=129 mg/dL [facility] Comment: Interpretive Data Ages < or [...] revised on 2018. Non-HDL Cholesterol 82 mg/dL [facility] Comment: Interpretive Data Ages < or [...] last revised on 2018. Chol/HDL ratio 3 [facility] Blood 03/08/2022 4:47 AM CDT 03/08/2022 5:06 AM CDT Narrative [facility] - 03/09/2022 12:17 AM CDT Reflex us Rupesh Gavin DO LAB BLOOD ORDERABLES Final R esult [facility] One [facility] Department [place] [address] from Last 3 Months or Most Recently Relevant to Health Maintenance Insurance [place] [id number] R HMO REF R HMO REF Advance Directives For more information, please contact: [phone] * Full Code (Latest Code Status on File) Date Activated Date Inactivated Comments 03/08/2022 11:21 AM 03/14/2022 6:08 PM Care Teams Bonding Equipment Operator Relationship Specialty Start Date End Date Adolph Lowry MD PCP - General Internal Medicine 09/15/21 Josemanuel Odell MD [address] [id number] Surgeon Internal Medicine 09/15/21 Rupesh Gavin DO [address] [place] [address] Medical Oncologist/Returner Hematology and Oncology 09/15/21
--- OUTSIDE RECORDS SUMMARY | 2025-05-31 11:42 | XMS_ITS | Referral Summary ---
Author Organization [facility] Address [address] [place] [address] Care Team Providers Care Advisory Internship Name Role Phone Adolph Lowry MD Primary Care Provider Josemanuel Odell MD Unavailable Rupesh Gavin DO Unavailable Encounters Date Type Department Care Team Description 05/31/2025 10:15 AM CDT Office Visit [facility] Oncology [address] [place] [address] [address] [place] [address] Rupesh Gavin DO Malignant neoplasm of upper-inner quadrant of left breast in female, estrogen receptor positive (HCC) (Primary Dx) 04/03/2025 Telephone [facility] Oncology [address] [place] [address] [address] [place] [address] Consuelo Isaacs CMA from Last 3 Months Allergies Active [...] Take 1 strip twice a day by [facility]. route for 90 days. 5 Active lancing device [facility] 2 (two) times a day Active blood-glucose meter (OneTouch Ultra2 Meter) kit FPD Active lancets (Microlet Lancet) [facility] Active cholecalcifero l (VITAMIN D-3) 2000 unit [...] Pt may like to establish care with mortgage loan counselor closer to home. 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 Gender Identity Not on file Sexual Orientation [...] 05/31/2025 10:50 AM CDT Plan of Treatment Not on file Procedures [...] Clark MD LAB BLOOD ORDERABLES Final Result [facility] Department [place] [address] * Hemoglobin A1c (03/08/2022 4:47 AM CDT) Hgb A1C 5.5 4.0 - 5.6 % [facility] Estimated Average Glucose 111 mg/dL [facility] Comment: The ADA recommends reporting an [...] DO LAB BLOOD ORDERABLES Final R esult [facility] Department [place] [address] * Lipid panel (03/08/2022 4:47 AM CDT) Pathologist [facility] Cholesterol 128 30 - 199 mg/dL [facility] Comment: Interpretive Data Ages < or [...] revised on 2018. Triglycerides 73 <=149 mg/dL [facility] Comment: Interpretive Data Ages < or [...] on 2018. HDL 46 >=40 mg/dL [facility] Comment: Interpretive Data Ages < or [...] on 2018. LDL, calculated 67 <=129 mg/dL [facility] Comment: Interpretive Data Ages < or [...] Pediatrics 2011;128:S213 2. NCEP Expert Panel. Circulation 2003;110:227 Current Interpretive Data was last revised on [...] Pediatrics 2011;128:S213 2. NCEP Expert Panel. Circulation 2003;110:227 Current Interpretive Data was last revised on 2018. Chol/HDL ratio 3 [facility] Blood 03/08/2022 4:47 AM CDT 03/08/2022 5:06 AM CDT Narrative [facility] - 03/09/2022 12:17 AM CDT Reflex Rupesh Gavin DO LAB BLOOD ORDERABLES Final R esult [facility] One [facility] Department [place] [address] from Last 3 Months or Most Recently Relevant to Health Maintenance Insurance MDCR HMO REF [facility] MDCR HMO REF Advance Directives For more information, please contact: [phone] * Full Code (Latest Code Status on File) Date Activated Date Inactivated Comments 03/08/2022 11:21 AM 03/14/2022 6:08 PM Care Teams Advisory Internship Relationship Specialty Start Date End Date Adolph Lowry MD PCP - General Internal Medicine 09/15/21 Josemanuel Odell MD [address] [address] Surgeon Internal Medicine 09/15/21 Rupesh Gavin DO [address] [place] [address] Medical Oncologist/Party Plan Sales Unit Sales Leader Hematology and Oncology 09/15/21
--- OUTSIDE RECORDS SUMMARY | 2025-05-31 11:42 | XMS_ITS ---
Author Organization [facility] Address [address] [place] [address] Care Team Providers Care Photographic Colorist Name Role Phone Adolph Lowry MD Primary Care Provider [phone] Josemanuel Odell MD Unavailable [phone] Rupesh Gavin DO Unavailable Active Problems Problem [...] from 12/09/2021:Stage IA(cT1a, cN0, cM0, G3, ER+, AK+, HER2-) - Signed by Rupesh Gavin DO [...] from the original note were not included. [address], [address] [place] [address] This Survivorship Care Plan is [...] Information: Primary Care Physician Adolph Lowry MD [phone] Surgeon Josemanuel Odell MD [phone] Medical Oncologist Rupesh Gavin, Treatment Summary Cancer [...] Stage IA (cT1a, cN0, cM0, G3, ER+, AK+, HER2-) - Signed by Rupesh Gavin DO [...] breast cancer could run in the family: Restorationism heritage History of ovarian cancer in the [...] year 5 Mammogram for remaining breast(s) Yearly TRANSMISSION REBUILDER: Pap/pelvic exam (woman only) As indicated by [...] counseling may be helpful. The use of fkmo-ojh-bpxxetl lubricants may lessen painful intercourse. Talk with [...] Help learning to eat healthier, call the supply chain tech at: [facility] Have an active lifestyle, strive for [...] man. Resources you may be interested in: [facility] http://www.[facility]/ [facility] Information Center 1st floor of [facility] [phone]. Computer access, educational material, counseling services (FREE) Cancer Resources: www.cancer.net [place] Disabilities Act: The U.S. Department of Justice provides information about the Americans with Disabilities Act (ADA). Toll free number http://www.ada.gov/ Occupational Therapy at [facility]. Improve memory and thinking following chemotherapy. Improve your performance at home, work and in the community. or Toll free www.ot.[facility]/patients Managing your weight after a cancer diagnosis: http://www.cancer.net/sites/cancer.net/files/weight_after_cancer_diagnosis.pdf National Coalition for Cancer Survivorship: http://www.canceradvocacy.org/ [place] Cancer Society Cancer Survivors Network: http://csn.cancer.org/ [employer] Cancer: https://survivorship.cancer.gov/ an online tool for cancer survivors andcaregivers created by the [place] Cancer Society and the National Cancer [place]. It provides: Information on dealing with side [...] Pt may like to establish care with club attendant closer to home. Provided [facility] cardiology clinic phone number in case she [...]
--- OUTSIDE RECORDS SUMMARY | 2025-05-31 11:43 | XMS_ITS | Clinical Summary ---
Author Organization [facility] Address [address] [place] [address] Phone Care Team Providers Care Script Artist Name Role Phone Alen Farfan MD Primary Care Provider [phone] Allergies Active Allergy Reactions Criticality Noted Date [...] 2 Active Cholecalciferol (Vitamin D3) 1.25 MG (94466 UT) capsule Take 50,000 Units by mouth [...] on file Legal Sex Female 8:48 AM [facility] Gender Identity Not on file Sexual Orientation Not on file Last Filed Vital Signs Vital Sign Reading Time Taken Comments Blood Pressure 133/71 07/03/2024 11:12 AM CDT Pulse 58 07/03/2024 11:12 AM CDT Temperature - - Respiratory Rate - - Oxygen Saturation - - Inhaled Oxygen Concentration - - Weight 96.2 kg (212 lb) 07/03/2024 11:12 AM CDT Height 170.2 cm (5' 7) 07/03/2024 11:12 AM CDT Body Mass Index 33.2 07/03/2024 11:12 AM CDT Plan of Treatment Upcoming Encounters Date Type Department Care Team (Late st Contact Info) Description 09/03/2025 1:00 PM CDT Office Visit [facility] [address] [facility], [address] [place] [address] Matt Sandoval MD [address] [address] Health Maintenance Due Date Last Done Comments Diabetic Foot Exam 1950 Ophthalmology Exam 1950 Pneumococcal PPSV23/PCV13 65 + Years / High and Highest Risk (2 of 4 - PPSV23, PCV20, or PCV21) 07/29/2017 06/03/2017 Influenza Vaccine (#1) 2025 08/31/2016 Insurance [employer] MEDICARE Care Teams Script Artist Relationship Specialty Start Date End Date Alen Farfan MD PCP - General 10/02/19
== END 2025-05-31 11:38 | disposition home or self-care (01) ==
PROVIDERS: PCP Internal Medicine
DX: I50.9 Heart failure, unspecified (principal); I51.7 Cardiomegaly
CPT/HCPCS: 71046

== ENCOUNTER 2025-06-21 02:26 | Day surgery (SDC) | payer MEDICARE, SELFPAY ==
[2025-06-10 13:43] VITALS: BMI 33.9
--- OUTSIDE RECORDS SUMMARY | 2025-06-21 02:30 | XMS_ITS | Clinical Summary ---
Author Organization [facility] Address [address] [place] [id number] Care Team Providers Care Fiberglass Autobody Repairer Name Role Phone Adolph Lowry MD Primary [...] for 90 days. 5 Active lancing device [facility] 2 (two) times a day Active blood-glucose meter (OneTouch Ultra2 Meter) kit FPD Active lancets (Microlet Lancet) [facility] Active cholecalcifero l (VITAMIN D-3) 2000 unit [...] Pt may like to establish care with rose grower closer to home. Provided [facility] cardiology clinic phone number in case she [...] Description 05/31/2025 10:15 AM CDT Office Visit [facility] Oncology [address] [place] [address] [address] [place] [address] Rupesh Gavin, Malignant neoplasm of upper-inner quadrant of left breast in female, estrogen receptor positive (HCC) (Primary Dx) 04/03/2025 Telephone [facility] Oncology [address] [place] [address] [address] [place] [address] Consuelo Isaacs CMA from Last [...] of Binge Drinking Not on file 10/21 Comments Unknown Sex and Gender Information Value Date Recorded Sex Assigned at Not on file 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 73 m2 [facility] Comment: Interpretive Data Reference Interval Normal >/= [...] Clark MD LAB BLOOD ORDERABLES Final Result [facility] [place] [address] * Hemoglobin A1c (03/08/2022 4:47 AM CDT) Hgb A1C 5.5 4.0 - 5.6 % [facility] Estimated Average Glucose 111 mg/dL [facility] Comment: The ADA recommends reporting an [...] LAB BLOOD ORDERABLES Final R esult [facility] [place] [address] * Lipid panel (03/08/2022 4:47 AM CDT) Cholesterol 128 30 - 199 mg/dL [facility] Comment: Interpretive Data Ages < or [...] on 2018. Triglycerides 73 <=149 mg/dL [facility] Comment: Interpretive Data Ages < or [...] on 2018. HDL 46 >=40 mg/dL [facility] Comment: Interpretive Data Ages < or [...] on 2018. LDL, calculated 67 <=129 mg/dL [facility] Comment: Interpretive Data Ages < or [...] revised on 2018. Non-HDL Cholesterol 82 mg/dL [facility] Comment: Interpretive Data Ages < or [...] last revised on 2018. Chol/HDL ratio 3 [facility] Blood 03/08/2022 4:47 AM CDT 03/08/2022 5:06 AM CDT Narrative [facility] - 03/09/2022 12:17 AM CDT Reflex us Rupesh Gavin DO LAB BLOOD ORDERABLES Final R esult [facility] Department [place] [address] from Last 3 Months or Most Recently Relevant to Health Maintenance Insurance [facility]IC[facility] ADVANTAGE [facility] Address: [address] [place], [place] [id number] R HMO REF [facility] Address: [place] [id number] R HMO REF [facility] Address: [place] [id number] Advance Directives For more information, please contact: [phone] * Full Code (Latest Code Status on File) Date Activated Date Inactivated Comments 03/08/2022 11:21 AM 03/14/2022 6:08 PM Care Teams Fiberglass Autobody Repairer Relationship Specialty Start Date End Date Adolph Lowry MD PCP - General Internal Medicine 09/15/21 Josemanuel Odell MD [address] [address] Surgeon Internal Medicine 09/15/21 Rupesh Gavin DO [address] [place] [address] Medical Oncologist/Library Services [facility] 09/15/21
--- OUTSIDE RECORDS SUMMARY | 2025-06-21 02:30 | XMS_ITS | Referral Summary ---
Author Organization [facility] Address [address] [place] [phone] Care Team Providers Care Underwriting Director Name Role Phone Adolph Lowry MD Primary Care Provider Josemanuel Odell MD Unavailable Rupesh Gavin DO Unavailable [phone] Encounters Date Type Department Care Team Description 05/31/2025 10:15 AM CDT Office Visit [facility] Oncology [address] [place] [address] [address] [place] [address] Rupesh Gavin DO Malignant neoplasm of upper-inner quadrant of left breast in female, estrogen receptor positive (HCC) (Primary Dx) 04/03/2025 Telephone [facility] Oncology [address] [place] [address] [address] [place] [address] Consuelo Isaacs CMA from Last [...] Take 1 strip twice a day by [facility]. route for 90 days. 5 Active lancing device [facility] 2 (two) times a day Active blood-glucose meter (OneTouch Ultra2 Meter) kit FPD Active lancets (Microlet Lancet) [facility] Active cholecalcifero l (VITAMIN D-3) 2000 unit [...] from 12/09/2021:Stage IA(cT1a, cN0, cM0, G3, ER+, [place]+, HER2-) - Signed by Rupesh Gavin DO [...] Pt may like to establish care with audiology doctor closer to home. 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 73 m2 [facility] Comment: Interpretive Data Reference Interval Normal >/= [...] of Race in Diagnosing Kidney Disease, JASN 2021). The CKD-EPI equation should not be used for patients with unstable renal function and has not been validated in children and those over 70. Current interpretive data was last reviewed 2021. Blood 03/14/2022 3:37 AM CDT 03/14/2022 3:48 AM CDT us Sami Clark MD LAB BLOOD ORDERABLES Final Result [facility] Department [place] [address] * Hemoglobin A1c (03/08/2022 4:47 AM CDT) [...] DO LAB BLOOD ORDERABLES Final [facility]ult [facility] Department [place] [address] * Lipid panel (03/08/2022 4:47 AM CDT) [...] revised on 2018. HDL 46 >=40 mg/dL [facility] Comment: Interpretive Data Ages < or [...] on 2018. LDL, calculated 67 <=129 mg/dL [facility] Comment: Interpretive Data Ages < or [...] revised on 2018. Non-HDL Cholesterol 82 mg/dL [facility] Comment: Interpretive Data Ages < or [...] last revised on 2018. Chol/HDL ratio 3 [facility] Blood 03/08/2022 4:47 AM CDT 03/08/2022 5:06 AM CDT Narrative [facility] - 03/09/2022 12:17 AM CDT Reflex Rupesh Gavin DO LAB BLOOD ORDERABLES Final R esult [facility] Department [place] [address] from Last 3 Months or Most Recently Relevant to Health Maintenance Insurance MEDICARE ADVANTAGE MDCR HMO REF [facility] MDCR HMO REF Advance Directives For more information, please contact: [phone] * Full Code (Latest Code Status on File) Date Activated Date Inactivated Comments 03/08/2022 11:21 AM 03/14/2022 6:08 PM Care Teams Underwriting Director Relationship Specialty Start Date End Date Adolph Lowry MD PCP - General Internal Medicine 09/15/21 Josemanuel Odell MD [address] [address] Surgeon Internal Medicine 09/15/21 Rupesh Gavin DO [address] [place] [address] Medical Oncologist/[facility] Marker Hematology and Oncology 09/15/21
--- OUTSIDE RECORDS SUMMARY | 2025-06-21 02:30 | XMS_ITS | Clinical Summary ---
Author Organization [facility] Address [address] [place] [phone] Phone Care Team Providers Care Cafeteria Operator Name Role Phone Alen Farfan MD Primary Care Provider [phone] Allergies Active Allergy Reactions Criticality Noted Date [...] 2 Active Cholecalciferol (Vitamin D3) 1.25 MG (49442 UT) capsule Take 50,000 Units by mouth [...] on file Legal Sex Female 8:48 AM [facility] Gender Identity Not on file Sexual [...] Description 09/03/2025 1:00 PM CDT Office Visit [facility] [address] [facility], [address] [place] [address] Matt Sandoval MD [address] [address] Health Maintenance Due Date Last Done Comments Diabetic Foot Exam 1950 Ophthalmology Exam 1950 Pneumococcal PPSV23/PCV13 65 + Years / High and Highest Risk (2 of 4 - PPSV23, PCV20, or PCV21) 07/29/2017 06/03/2017 Influenza Vaccine (#1) 2025 08/31/2016 Insurance [employer] MEDICARE Care Teams Cafeteria Operator Relationship Specialty Start Date End Date Alen Farfan MD PCP - General 10/02/19
--- OUTSIDE RECORDS SUMMARY | 2025-06-21 02:30 | XMS_ITS | Continuity of Care Document ---
Author Organization [facility] Address [address] [place] [address] Phone Care Team Providers Care Shipping Room Supervisor Name Role Phone Su Madden Unavailable Unavailable Advance Directives Directive Yes / No Effective Date File Name No Information Encounters Encounter Description Practice Location Reason(s) For Visit Diagnoses Date Provider Providers Copied on Encounter [facility], [address] [place] [address] [address], [place], [place], [id number], [place] tel:[phone] SEC [facility] No Information Jan-2 9-200 1 Maryanne Blue. [address] , [address], [place], [address], [place]. tel:[phone] Family History Family Member Type Diagnosis Age At Onset No Information Payers Payer name Insurance type Covered libertarian ID Authoriza tion(s) [employer] SOI CI [id number] Social History Type Description Quantity Date Captured [...]
--- OUTSIDE RECORDS SUMMARY | 2025-06-21 02:30 | XMS_ITS ---
Author Organization [facility] Address [address] [place] [address] Care Team Providers Care Environmental Protection Economist Name Role Phone Adolph Lowry MD Primary Care Provider [phone] Josemanuel Odell MD Unavailable [phone] Rupesh Gavin DO Unavailable [phone] Active Problems Problem Noted Date Diagnosed Date [...] from 12/09/2021:Stage IA(cT1a, cN0, cM0, G3, ER+, [place]+, HER2-) - Signed by Rupesh Gavin DO [...] from the original note were not included. 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 The use of jdxt-gux-kzermnd lubricants may lessen painful intercourse. Talk with [...] Help learning to eat healthier, call the escort patients at: [facility] Valerie Have an active lifestyle, strive [...] man. Resources you may be interested in: [facility] A [facility] http://www.[facility]/ [facility] 1st floor of [facility] [phone]. Computer access, educational material, counseling services (FREE) Cancer Resources: www.cancer.net [place] Disabilities Act: The U.S. Department of Justice provides information about the Americans with Disabilities Act (ADA). Toll free number http://www.ada.gov/ Occupational Therapy at [facility]. Improve memory and thinking following chemotherapy. Improve your performance at home, work and in the community. or Toll free www.ot.[facility]/patients Managing your weight after a cancer diagnosis: http://www.cancer.net/sites/cancer.net/files/weight_after_cancer_diagnosis.pdf National Coalition for Cancer Survivorship: http://www.canceradvocacy.org/ [place] Cancer Society Cancer Survivors Network: http://csn.cancer.org/ [employer] Cancer: https://survivorship.cancer.gov/ an online tool for cancer survivors andcaregivers created by the [place] Cancer Society and the National Cancer Anna. It provides: Information on dealing with side [...] Pt may like to establish care with field sales agent closer to home. Provided [facility] cardiology clinic phone number in case she [...]
[2025-06-21 12:57] VITALS: BP 140/64; PULSE 60; RESP 18; TEMP 36.8; O2SAT 100
--- NOTE | 2025-06-21 13:04 | WPDANESEPPF ---
Anes - Initial Pre Proc Eval Procedure: Operation Date: 06/21/25 13:45 Proposed Procedures p Esophagogastroduodenoscopy - Mitch Hardwick MD Date/Time: 06/21/25 13:04 Surgeon: Mitch Hardwick MD Pre Op Diagnosis: Dysphagia, unspecified Patient Data Age: 85 Gender: F Height: 1.68 m Weight: 95.8 kg Last Vital Signs Temp 36.8 C 06/21/25 12:57 Pulse 60 06/21/25 12:57 Resp 18 06/21/25 12:57 BP 140/64 06/21/25 12:57 Pulse Ox 100 06/21/25 12:57 O2 Del Method Room Air 06/21/25 12:57 Allergies Allergy/AdvReac Type Severity Reaction Status Date / Time codeine AdvReac Nausea and Verified 06/21/25 12:55 Vomiting Home Medications ?Medication ?Instructions ?Recorded ?Confirmed ?Type allopurinol 300 mg tablet 300 mg PO DAILY 06/10/25 06/21/25 History anastrozole 1 mg tablet 1 mg PO DAILY 06/10/25 06/21/25 History aspirin 81 mg tablet,delayed 81 mg PO DAILY 06/10/25 06/21/25 History release cholecalciferol (vitamin D3) 50 2,000 unit PO DAILY 06/10/25 06/21/25 History mcg (2,000 unit) capsule dapagliflozin propanediol 10 mg 10 mg PO DAILY 06/10/25 06/21/25 History tablet (Farxiga) famotidine 40 mg tablet 40 mg PO DAILY 06/10/25 06/21/25 History ferrous sulfate 325 mg (65 mg 325 mg PO DAILY 06/10/25 06/21/25 History iron) tablet (FeroSul) isosorbide 20 mg-hydralazine 37.5 0.5 tablet PO TID 06/10/25 06/21/25 History mg tablet metoprolol succinate 25 mg 25 mg PO DAILY 06/10/25 06/21/25 History tablet,extended release 24 hr omeprazole 40 mg capsule,delayed 40 mg PO DAILY 06/10/25 06/21/25 History release sacubitril 24 mg-valsartan 26 mg 1 tablet PO BID 06/10/25 06/21/25 History tablet (Entresto) simvastatin 20 mg tablet 20 mg PO DAILY 06/10/25 06/21/25 History spironolactone 25 1 tablet PO DAILY 06/10/25 06/21/25 History mg-hydrochlorothiazide 25 mg tablet vericiguat 10 mg tablet (Verquvo) 10 mg PO DAILY 06/10/25 06/21/25 History Patient hx anesthesia problems: none Family hx anesthesia problems: none Results Review: All pre-operative results and documents have been reviewed as part of the pre-operative evaluation. [facility] Social History Social History Smoking status: Former smoker Tobacco type: cigarettes Substance use type: does not use Living arrangements: alone Spiritual care concerns: No Anes - Eval Final PreProcedure Day of Procedure 06/21/25 13:04 Patient weight: obese Heart: regular rate and rhythm Lungs: decreased breath sounds Airway: Mallampati scale class III Neurological: alert and oriented Last oral intake: >/= 8 hours ASA classification: III Emergent: no Anesthetic plan: proceed Anesthesia type and monitoring: general GIVS and standard monitoring Results Review: All pre-operative results and documents have been reviewed as part of the pre-operative evaluation. Informed Consent: The patient's anesthetic plan and its attendant risks and benefits were discussed with the patient/family/POA. Questions were solicited and answers provided to the satisfaction of the patient/family/POA.
[2025-06-21] MEDS: LACTATED RINGERS 1,000 ML 150 ML IV CONT (13:09)
--- NOTE | 2025-06-21 14:10 | PM.HPGS ---
History of Present Illness History of Present Illness Consent: Risks, benefits, and alternatives have been discussed and questions answered. Patient agrees to proceed with procedure. Chief complaint: Dysphagia, unspecified Narrative: Massiel Kingsley is a 85 year old female with gerd on ppi Review of Systems Review of Systems: All systems reviewed & are unremarkable except as noted in HPI and below PMFSH Past Medical History Medical History (Updated 06/21/25 @ 14:11 by Mitch Hardwick MD) GERD (gastroesophageal reflux disease) Social History Social History Smoking status: Former smoker Tobacco type: cigarettes Substance use type: does not use Living arrangements: alone Spiritual care concerns: No Meds Home Medications and Allergies Home Medications ?Medication ?Instructions ?Recorded ?Confirmed ?Type allopurinol 300 mg tablet 300 mg PO DAILY 06/10/25 06/21/25 History anastrozole 1 mg tablet 1 mg PO DAILY 06/10/25 06/21/25 History aspirin 81 mg tablet,delayed 81 mg PO DAILY 06/10/25 06/21/25 History release cholecalciferol (vitamin D3) 50 2,000 unit PO DAILY 06/10/25 06/21/25 History mcg (2,000 unit) capsule dapagliflozin propanediol 10 mg 10 mg PO DAILY 06/10/25 06/21/25 History tablet (Farxiga) famotidine 40 mg tablet 40 mg PO DAILY 06/10/25 06/21/25 History ferrous sulfate 325 mg (65 mg 325 mg PO DAILY 06/10/25 06/21/25 History iron) tablet (FeroSul) isosorbide 20 mg-hydralazine 37.5 0.5 tablet PO TID 06/10/25 06/21/25 History mg tablet metoprolol succinate 25 mg 25 mg PO DAILY 06/10/25 06/21/25 History tablet,extended release 24 hr omeprazole 40 mg capsule,delayed 40 mg PO DAILY 06/10/25 06/21/25 History release sacubitril 24 mg-valsartan 26 mg 1 tablet PO BID 06/10/25 06/21/25 History tablet (Entresto) simvastatin 20 mg tablet 20 mg PO DAILY 06/10/25 06/21/25 History spironolactone 25 1 tablet PO DAILY 06/10/25 06/21/25 History mg-hydrochlorothiazide 25 mg tablet vericiguat 10 mg tablet (Verquvo) 10 mg PO DAILY 06/10/25 06/21/25 History Allergies Allergy/AdvReac Type Severity Reaction Status Date / Time codeine AdvReac Nausea and Verified 06/21/25 12:55 Vomiting Vital Signs Vital Signs - 24 hr 06/21/25 12:57 Temperature 98.2 F Pulse Rate 60 Respiratory Rate 18 Blood Pressure 140/64 Pulse Oximetry 100 Oxygen Delivery Room Air Exam Const: General: comfortable and no acute distress HENMT: Face/Nose/Sinus: Normal nares present Eyes: General: appearance normal, both eyes and all related structures Neck: Neck: no JVD Resp: Auscultation: clear to auscultation bilaterally Cardio: Rate: regular rate Rhythm: regular rhythm GI: Inspection: non-distended GI Palp: Yes Soft to palpation Skin: General skin exam: normal color Neuro: Speech: normal speech Extrem: General: normal to inspection Psych: Mental Status: mental status grossly normal Assessment and Plan Assessment and plan (1) GERD (gastroesophageal reflux disease): Code(s): K21.9 - Gastro-esophageal reflux disease without esophagitis Status: Acute Assessment and Plan: egd
--- NOTE | 2025-06-21 14:16 | S_PTH ---
PATIENT: Massiel Kingsley LOC: ANITA Caballero#:[id number] AGE/SX: 85/F ROOM: RE06/21/[address]: Mitch Hardwick MD : 1940 BED: DIS: 06/21/2025 SPEC #: [id number] RECD: 06/24/25 08:17 STATUS: UBALDO REMissael #: [id number] EDD: 06/21/25 14:[address]: Mitch Hardwick DEPT: [facility] Surgical RECD BY: Fidelina Novoa ENTERED: 06/24/25 08:17 SP TYPE: Surgical OTHR DR: Adolph Lowry, Tissues: A - Gastric Biopsy Procedures: Hematoxylin and Eosin Stain Gross and Microscopic Level 4 H.Pylori
[2025-06-21 14:17] VITALS: BP 120/53; PULSE 60; RESP 26; O2SAT 94
[2025-06-21 14:27] VITALS: BP 96/58; PULSE 55; RESP 21; O2SAT 99
[2025-06-21 14:37] VITALS: BP 114/58; PULSE 51; RESP 16; O2SAT 99
== END 2025-06-21 14:45 | disposition home or self-care (01) ==
PROVIDERS: PCP Internal Medicine; Visit Provider Internal Medicine Gastroenterology
PROC: 0DJ08ZZ Inspection of Upper Intestinal Tract, Via Natural or Artificial Opening Endoscopic (ICD-10-PCS; CPT 43239; principal; 2025-06-21 13:45)
DX: K21.9 Gastro-esophageal reflux disease without esophagitis (principal); K29.50 Unspecified chronic gastritis without bleeding; E66.9 Obesity, unspecified; Z68.34 Body mass index [BMI] 34.0-34.9, adult; Z79.82 Long term (current) use of aspirin; Z79.84 Long term (current) use of oral hypoglycemic drugs; Z87.891 Personal history of nicotine dependence
CPT/HCPCS: 43239; 82948; 88305; 88342; J2704; J7120